=== PATIENT | male | born 1950 | race Caucasian/White ===

== ENCOUNTER 2019-09-22 13:24 | Inpatient (IN) | payer OTHER ==
[~2019-09-22] VITALS: Ht 175.3 cm; Wt 86.2 kg
[2019-09-22 13:30] VITALS: BP 111/59
--- NOTE | 2019-09-22 13:38 | NUR ---
68 YO MALE BIBA FOR GENERALIZED WEAKNESS AND BLE +4 PITTING EDEMA. PT DOES NOT C/O ANY PAIN. PT HAS HX OF HEART ISSUES BUT IS A POOR HISTORIAN. NO RX MEDS.
--- NOTE | 2019-09-22 13:38 | NUR ---
Patient being evaluated by Dr. Isaacs at bedside.
--- NOTE | 2019-09-22 13:40 | NUR ---
PT HAS HEPATITIS C. MADE AWARE.
[2019-09-22 14:16] LABS: BASOPHILS % (AUTO) 1.1 % (0.0-2.0); EOSINOPHILS # (AUTO) 0.2 K/uL (0-0.4); EOSINOPHILS % (AUTO) 4.8 % (0.0-4.0); HEMATOCRIT 23.9 % (36-52); HEMOGLOBIN 7.5 g/dL (12.0-18.0); LYMPHOCYTES # (AUTO) 0.9 K/uL (2.0-11.5); LYMPHOCYTES % (AUTO) 22.2 % (20.5-51.1); MEAN CORPUSCULAR HEMOGLOBIN 24 pg (27-31); MEAN CORPUSCULAR HGB CONC 32 g/dL (33-37); MEAN CORPUSCULAR VOLUME 75.4 fL (80-94); MONOCYTES # (AUTO) 0.5 K/uL (0.8-1.0); MONOCYTES % (AUTO) 12.3 % (1.7-9.3); NEUTROPHILS # (AUTO) 2.4 K/uL (1.8-7.7); NEUTROPHILS % (AUTO) 59.6 % (42.2-75.2); PLATELET COUNT (AUTO) 126 K/uL (140-450); RED BLOOD CELL COUNT(AUTO) 3.17 MIL/uL (4.20-6.10); RED CELL DISTRIBUTION WIDTH 18.5 % (11.6-13.7)
[2019-09-22] MEDS ORDERED: ASPIRIN 325 MG TAB PO ONE (14:50)
--- NOTE | 2019-09-22 14:50 | NUR ---
lab called with critical level: Troponin 6.556
[2019-09-22 14:53] LABS: PROTHROMBIN TIME 11.7 secs (10.8-13.4)
[2019-09-22] MEDS ORDERED: ASPIRIN 81 MG TAB.CHEW PO SCH (15:10)
[2019-09-22 15:34] LABS: ANION GAP 9.9 (8-16); CARBON DIOXIDE 24.8 mmol/L (21-32); CREATININE 0.9 mg/dL (0.6-1.3); POTASSIUM 3.7 mmol/L (3.5-5.1); TOTAL BILIRUBIN 0.9 mg/dL (0.0-1.0)
--- NOTE | 2019-09-22 16:50 | NUR ---
PT IS HOMELESS. CANT RECALL THE YEAR OR PLACE. AWARE OF HIS NAME AND BIRTHDAY
--- NOTE | 2019-09-22 16:51 | NUR ---
MULTIPLE ATTEMPTS FOR IV , UNSUCCESSFUL
--- NOTE | 2019-09-22 16:54 | NUR ---
pt has a hx of chronic edema (2+ to lower extremeties), hepatitis C, cirrhosis, and per dr kiser-possible heart failure
[2019-09-22] MEDS ORDERED: ONDANSETRON 4 MG/2 ML VIAL IM/IVP PRN (16:55)
[2019-09-22] MEDS ORDERED: HYDROcodone/APAP 7.5/325 MG 1 TAB PO PRN (16:55)
[2019-09-22] MEDS ORDERED: ACETAMINOPHEN 325 MG TAB PO PRN (16:55)
[2019-09-22] MEDS ORDERED: MORPHINE SULFATE 2 MG/ML SYR IVP PRN (16:55)
[2019-09-22] MEDS ORDERED: LACTULOSE 20 GM/30 ML UDC PO ONE (16:55)
[2019-09-22] MEDS ORDERED: DOCUSATE SODIUM 100 MG GELCAP PO PRN (16:55)
--- NOTE | 2019-09-22 17:01 | NUR ---
r wrist iv inserted by debbie wolf
[2019-09-22] MEDS ORDERED: FUROSEMIDE 40 MG/4 ML VIAL IVP ONE (17:10)
--- NOTE | 2019-09-22 17:10 | NUR ---
PT CONINUES TO FALL BACK ASLEEP AFTER BEING WOKEN
[2019-09-22 17:24] LABS: MAGNESIUM 1.4 mg/dL (1.8-2.4); PHOSPHORUS 2.9 mg/dL (2.5-4.9); THYROID STIMULATING HORMONE 7.09 uIU/mL (0.34-3.74)
--- NOTE | 2019-09-22 17:25 | NUR ---
LASIX AND LACTULOSE ADMINISTERED
[2019-09-22] MEDS ORDERED: NITROGLYCERIN 0.4 MG TAB SL PRN (17:40)
--- NOTE | 2019-09-22 17:40 | NUR ---
NADR, PAIN 08/24
[2019-09-22] MEDS ORDERED: hePARIN / DEXT 5% PREMIX 250 ML IV SCH (17:50)
[2019-09-22] MEDS ORDERED: HEPARIN PER PHARMACY MC PRN ×2 (17:50→18:50)
[2019-09-22 18:00] VITALS: BP 122/69
--- NOTE | 2019-09-22 18:00 | NUR ---
RECEIVED REPORT FROM ER NURSE, POLLY, FOR CONTINUITY OF CARE, PT IS AAOX2, PT IS STABLE, NO SIGNS OF DISTRESS NOTED, RESPIRATIONS ARE EVEN AND UNLABORED, PT HAS R WRIST 18G SALINE LOCK, PT SKIN IS INTACT, PT IS JAUNDICE, PT HAS BILATERAL LOWER LEGS NON-PITTING EDEMA, PT ON CARDIAC DIET, TOOK MRSA SAMPLE, PT PLACED ON NORMAL SALINE AT 100 ML/H PER MD ORDER. INTRODUCE SELF AND INTRODUCE PT TO ROOM, UPDATED WHITEBOARD, ALL NEEDS MET AT THIS TIME, WILL CONTINUE TO MONITOR
--- NOTE | 2019-09-22 18:00 | NUR ---
Patient will be admitted to care of DR LEE. Admited to TELE. Will go to room 122A. Belongings list completed. Report to KALEB AYALA.
[2019-09-22] MEDS: NACL 0.9% 1,000 ML IV SCH (18:10)
--- NOTE | 2019-09-22 18:10 | NUR ---
Note ayush in ED - 09/22/19 at 1811 by [email or web address] Patient will be admitted to care of DR LEE. Admited to TELE. Will go to room 122A. Belongings list completed. Report to KALEB AYALA.
--- NOTE | 2019-09-22 19:15 | NUR ---
GAVE REPORT TO NIGHT NURSE FOR CONTINUITY OF CARE, PT IS STABLE
--- NOTE | 2019-09-22 19:16 | NUR ---
RECEIVED REPORT FROM DAY SHIFT NURSE. PT IN BED WITH HOB ELEVATED. AOX2. RESPIRATIONS EVEN AND UNLABORED TO RA. IV ACCESS G18 ON R WRIST CLEAN AND INTACT. IVF INFUSING WELL. EDEMA NOTED ON BLE. SKIN IS JAUNDICED. NO SIGNS/SYMPTOMS OF DISTRESS NOTED AT THIS TIME. SAFETY MEASURES IN PLACE. CALL LIGHT WITHIN REACH. WILL CONTINUE TO MONITOR.
[2019-09-22] MEDS ORDERED: SODIUM FERRIC GLUCONATE 12.5 MG/ML AMP IV ONE (19:56)
[2019-09-22] MEDS: SODIUM FERRIC GLUCONATE 125 MG in NACL 0.9% 100 ML IV SCH (19:59)
[2019-09-22 20:00] VITALS: BP 132/75
[2019-09-22] MEDS ORDERED: CRUSHER, PILL MC ONE (20:15)
[2019-09-22] MEDS: METOPROLOL 25 MG TAB PO SCH (20:16)
--- NOTE | 2019-09-22 20:16 | NUR ---
VITAL SIGNS STABLE. SCHEDULED MEDS GIVEN ORDERED. PT STILL DROWSY BUT RESPONDS TO VOICE AND TOUCH. NO S/SX OF DISTRESS AT THIS TIME. CALL LIGHT WITHIN REACH. WILL CONTINUE TO MONITOR.
[2019-09-22] MEDS: hePARIN / DEXT 5% PREMIX 250 ML IV SCH ×2 (21:45→21:58)
--- NOTE | 2019-09-22 21:45 | NUR ---
HEPARIN DRIP STARTED. CO-SIGNED AND ACKNOWLEDGED WITH CHARGE NURSE (LEA). PTT ORDERED AT 0345 PER PROTOCOL. WILL CONTINUE TO MONITOR.
[2019-09-22 21:58] LABS: APPEARANCE,URINE CLEAR (CLEAR); BILIRUBIN,URINE NEGATIVE (NEGATIVE); BLOOD, URINE NEGATIVE (NEGATIVE); LEUKOCYTE ESTERASE ,URINE NEGATIVE (NEGATIVE); NITRITE, URINE NEGATIVE (NEGATIVE); PH,URINE 5.5 (5.0-9.0); UGLUCOSE NEGATIVE (NEGATIVE)
[2019-09-22 22:00] LABS: COLOR,URINE STRAW (YELLOW)
--- NOTE | 2019-09-22 22:17 | NUR ---
CRITICAL LAB VALUE TROPONIN 4.[address] MERRITT INFORMED. NO NEW ORDERS MADE.
[2019-09-22 22:24] LABS: BARBITURATE, URINE NEGATIVE ng/ml (NEG <=200); BENZODIAZEPINE, URINE NEGATIVE ng/mL (NEG <=200); CANNABINOID, URINE NEGATIVE ng/mL (NEG <=50); COCAINE, URINE NEGATIVE ng/mL (NEG <=300); OPIATE, URINE POSITIVE ng/mL (NEG <=2000); PHENCYCLIDINE SCREEN,URINE NEGATIVE ng/mL (NEG <=25)
--- NOTE | 2019-09-22 23:45 | NUR ---
VITAL SIGNS WNL. PT STILL DROWSY. HEPARIN DRIP STILL INFUSING WELL. PT REFUSES IV INSERTION FOR FLUID HYDRATION. WILL CONTINUE TO MONITOR.
[2019-09-23] VITALS: BP 125/71
--- NOTE | 2019-09-23 02:02 | NUR ---
PT ASLEEP. NOT IN DISTRESS. RESPIRATIONS EVEN AND UNLABORED. CALL LIGHT WITHIN REACH. WILL CONTINUE TO MONITOR.
[2019-09-23] MEDS: NACL 0.9% 1,000 ML IV SCH ×2 (02:55→11:49)
[2019-09-23 04:00] VITALS: BP 119/69
--- NOTE | 2019-09-23 04:00 | NUR ---
VITAL SIGNS STABLE. PT STILL DROWSY BUT AROUSABLE BY VOICE AND TOUCH. SAFETY MEASURES IN PLACE. WILL CONTINUE TO MONITOR.
--- NOTE | 2019-09-23 07:15 | NUR ---
ENDORSED TO DAY SHIFT NURSE FOR CONTINUITY OF CARE. PT IN STABLE CONDITION.
--- NOTE | 2019-09-23 07:16 | NUR ---
RECEIVED REPORT FROM GLASS BULB SILVERER NURSE. PATIENT LYING DOWN IN BED SLEEPING, AROUSABLE BY VOICE. NO DISTRESS NOTED. DENIES ANY PAIN. AAOX2, CALM, COOPERATIVE, SKIN COLOR APPROPRIATE TO ETHNICITY, WARM TO TOUCH. SKIN INTACT. HAS BLE PITTING +1 PITTING EDEMA. RESPIRATIONS EVEN, UNLABORED, ON ROOM AIR. IV SITE INTACT, PATENT, AND INFUSING HEPARIN DRIP. NO OTHER IV LINE NOTED PATIENT REFUSED ANOTHER IV LINE PER NIGHT RN. REVIEWED PLAN OF CARE WITH PATIENT. PATIENT VERBALIZED UNDERSTANDING. SAFETY MEASURES IN PLACE, CALL LIGHT WITHIN REACH. WILL CONTINUE TO MONITOR.
[2019-09-23 08:00] VITALS: BP 136/80
[2019-09-23] MEDS: hePARIN / DEXT 5% PREMIX 250 ML IV SCH ×2 (08:53→16:17)
[2019-09-23] MEDS: FERROUS GLUCONATE 324 MG TAB PO SCH (08:55)
[2019-09-23] MEDS: ASPIRIN 81 MG TAB.CHEW PO SCH (08:56)
[2019-09-23] MEDS: ATORVASTATIN 20 MG TAB PO SCH (08:56)
[2019-09-23] MEDS: METOPROLOL 25 MG TAB PO SCH ×2 (08:56→21:57)
[2019-09-23] MEDS: LISINOPRIL 5 MG TAB PO SCH (08:56)
[2019-09-23] MEDS: LACTULOSE 20 GM/30 ML UDC PO SCH ×4 (08:56→17:00)
[2019-09-23] MEDS: FUROSEMIDE 40 MG/4 ML VIAL IVP SCH (08:57)
--- NOTE | 2019-09-23 09:04 | NUR ---
PATIENT LYING DOWN IN BED. NO DISTRESS NOTED. SCHEDULED MEDICATIONS DUE GIVEN. WILL CONTINUE TO MONITOR.
--- NOTE | 2019-09-23 09:50 | NUR ---
YARN WEIGHER AT BEDSIDE. WILL CONTINUE TO MONITOR.
[2019-09-23 12:00] VITALS: BP 126/78
--- NOTE | 2019-09-23 12:52 | NUR ---
PATIENT SITTING IN BED WITH LUNCH TRAY IN FRONT. NO DISTRESS NOTED. CONDITION UNCHANGED. WILL CONTINUE TO MONITOR.
--- NOTE | 2019-09-23 13:44 | NUR ---
PATIENT SITTING DOWN IN BED. CONDITION UNCHANGED. SCHEDULED MEDICATIONS DUE GIVEN. WILL CONTINUE TO MONITOR. Addendum: 09/23/19 at 1355 by Ken Arriaga RN PATIENT REFUSED TO TAKE LACTULOSE AT THIS TIME. LACTULOSE OPENED ALREADY, THUS 1300 SCHEDULED LACTULOSE 20 GM WASTED AT THIS TIME
[2019-09-23 15:05] LABS: EOSINOPHILS % (AUTO) 1.1 % (0.0-4.0); HEMOGLOBIN 9.1 g/dL (12.0-18.0); LYMPHOCYTES # (AUTO) 0.6 K/uL (2.0-11.5); LYMPHOCYTES % (AUTO) 14.5 % (20.5-51.1); MEAN CORPUSCULAR HEMOGLOBIN 23 pg (27-31); MEAN CORPUSCULAR HGB CONC 31 g/dL (33-37); MEAN CORPUSCULAR VOLUME 74.9 fL (80-94); MONOCYTES # (AUTO) 0.5 K/uL (0.8-1.0); MONOCYTES % (AUTO) 10.5 % (1.7-9.3); NEUTROPHILS # (AUTO) 3.1 K/uL (1.8-7.7); NEUTROPHILS % (AUTO) 72.9 % (42.2-75.2); PLATELET COUNT (AUTO) 154 K/uL (140-450); RED BLOOD CELL COUNT(AUTO) 3.88 MIL/uL (4.20-6.10); RED CELL DISTRIBUTION WIDTH 18.6 % (11.6-13.7); WHITE BLOOD COUNT (AUTO) 4.3 K/uL (4.8-10.8)
[2019-09-23 15:26] LABS: ANION GAP 8.5 (8-16); CARBON DIOXIDE 28.1 mmol/L (21-32); CREATININE 0.8 mg/dL (0.6-1.3); POTASSIUM 3.6 mmol/L (3.5-5.1)
--- NOTE | 2019-09-23 15:42 | NUR ---
PATIENT REFUSING TO HAVE CT OF ABD/PELVIS WITH CONTRAST DONE TO R/O HEPATOMA AND REFUSES NEW IV PLACEMENT ON AC FOR CONTRAST ADMINISTRATION. NOTIFIED DR. RODRIGUEZ. DR. RODRIGUEZ TALKED TO PATIENT AT BEDSIDE. PATIENT REFUSES FOR NOW AND WANTS 1 DAY TO THINK ABOUT IT. PER DR. RODRIGUEZ, WILL ASK PATIENT AGAIN TOMORROW.
[2019-09-23 15:58] LABS: MAGNESIUM 1.4 mg/dL (1.8-2.4); PHOSPHORUS 2.4 mg/dL (2.5-4.9)
[2019-09-23 16:00] VITALS: BP 127/76
[2019-09-23 16:00] LABS: CHOL/HDL RATIO 2.7 (1-4.5)
[2019-09-23 16:01] LABS: TOTAL BILIRUBIN 0.8 mg/dL (0.0-1.0)
[2019-09-23 16:02] LABS: ALBUMIN 1.8 g/dL (3.4-5.0); BILIRUBIN,DIRECT 0.3 mg/dL (0.0-0.3)
--- NOTE | 2019-09-23 16:27 | NUR ---
SCHEDULED MEDICATIONS DUE GIVEN. WILL CONTINUE TO MONITOR.
--- NOTE | 2019-09-23 18:30 | NUR ---
PATIENT SITTING DOWN IN BED WITH DINNER TRAY IN FRONT. NO DISTRESS NOTED. CONDITION UNCHANGED. WILL CONTINUE TO MONITOR.
--- NOTE | 2019-09-23 19:18 | NUR ---
GAVE REPORT TO COLLECTION SYSTEMS MODELER NURSE FOR CONTINUITY OF CARE. PATIENT IN STABLE CONDITION.
--- NOTE | 2019-09-23 19:25 | NUR ---
RECEIVED REPORT FROM DAY SHIFT NURSE. PATIENT IS LYING, ASLEEP COMFORTABLY WITH NO SIGNS OF DISTRESS. RESPIRATIONS EVEN AND UNLABORED. SKIN INTACT. AMBULATORY. ON ROOM AIR. IV SITE INTACT, PATENT, AND INFUSING HEPARIN DRIP. REVIEWED PLAN OF CARE WITH PATIENT. PATIENT VERBALIZED UNDERSTANDING. SAFETY MEASURES IN PLACE, CALL LIGHT WITHIN REACH. WILL CONTINUE TO MONITOR.
[2019-09-23 20:00] VITALS: BP 111/60
[2019-09-23] MEDS: SODIUM FERRIC GLUCONATE 125 MG in NACL 0.9% 100 ML IV SCH (20:00)
--- NOTE | 2019-09-23 20:15 | NUR ---
PT REFUSED TO HAVE LOOK FOR ANY VEIN FOR NEW IV ACCESS. DR. ALLEN MADE AWARE. HE SAID HE WILL ORDER PO REPLACEMENT FOR FERRLECIT IV AND MAGNESIUM AND PHOS LEVEL ARE BOTH LOW. WILL ALSO ORDER PO.
[2019-09-23] MEDS ORDERED: SODIUM PHOS / POTASSIUM PHOS 1 PKT PDR PO ONE (21:20)
[2019-09-23] MEDS ORDERED: MAGNESIUM OXIDE 400 MG TAB PO ONE (21:20)
--- NOTE | 2019-09-23 22:02 | NUR ---
SCHEDULED DUE MEDICATIONS GIVEN. WILL CONTINUE TO MONITOR.
--- NOTE | 2019-09-23 22:37 | NUR ---
PATIENT SLEEPING COMFORTABLY. CALL LIGHT WITHIN REACH. WILL CONTINUE TO MONITOR.
--- NOTE | 2019-09-23 23:24 | NUR ---
BACK HAND UNABLE TO DRAW BLOOD FOR PTT. PT REFUSED TO TRY IT AGAIN. CALLED DR. ALLEN,RESIDENT. HE SAID TO CALL PHARMACY WHICH I DID AND PHARMACIST SAID OK TO CONTINUE WITHOUT THE PTT FOR NOW AND CAN DRAW ANOTHER ONE IN AM. DR. ALLEN MADE AWARE ABOUT THIS. DR. ALLEN SAID TO CONTINUE WITH HEPARIN DRIP AND HE WILL ORDER PTT IN AM.
[2019-09-24] VITALS: BP 115/71
--- NOTE | 2019-09-24 02:26 | NUR ---
PATIENT STILL SLEEPING COMFORTABLY. CALL LIGHT WITHIN REACH. WILL CONTINUE TO MONITOR.
[2019-09-24] MEDS: hePARIN / DEXT 5% PREMIX 250 ML IV SCH (03:03)
[2019-09-24 04:00] VITALS: BP 118/62
--- NOTE | 2019-09-24 04:53 | NUR ---
PT ASLEEP. NO SIGNS OF DISTRESS. WILL CONTINUE TO MONITOR.
--- NOTE | 2019-09-24 06:13 | NUR ---
SOLAR PHOTOVOLTAIC CREW LEAD CAME AND TRIED TO DRAW BLOOD FOR PTT AND OTHER AM LABS, UNABLE TO GET BLOOD ON THE FIRST TRY, PATIENT REFUSED TO HAVE IT DONE AGAIN. DR. ALLEN RESIDENT MADE AWARE. NO NEW ORDER MADE. WILL WAIT FOR FURTHER ORDER.
--- NOTE | 2019-09-24 06:39 | NUR ---
FNS consult received on 09/22/19 for no reason given. Consult reason does not meet high risk criteria per hospital policy. Patient will be seen and assessed according to the nutrition care policy. Mari Phillips MS, RDN
[2019-09-24] MEDS: NACL 0.9% 1,000 ML IV SCH (06:41)
--- NOTE | 2019-09-24 06:55 | NUR ---
PATIENT HAS BEEN SCREENED AND CATEGORIZED MODERATE NUTRITION RISK. PATIENT WILL BE SEEN WITHIN 3-5 DAYS OF ADMISSION. 09/26/19-09/28/19 JESIKA BATISTA MS, RDN
--- NOTE | 2019-09-24 07:18 | NUR ---
PATIENT IN STABLE CONDITION. GAVE REPORT TO DAY SHIFT NURSE FOR CONTINUITY OF CARE.
--- NOTE | 2019-09-24 07:19 | NUR ---
RECEIVED REPORT FROM SALES COACH NURSE. PATIENT LYING DOWN IN BED WITH BREAKFAST TRAY IN FRONT. NO DISTRESS NOTED. DENIES ANY PAIN. AAOX2, CALM, COOPERATIVE, SKIN COLOR APPROPRIATE TO ETHNICITY, WARM TO TOUCH. SKIN INTACT. HAS BLE PITTING +1 PITTING EDEMA. RESPIRATIONS EVEN, UNLABORED, ON ROOM AIR. IV SITE LEAKING BLOOD, REMOVED AT THIST TIME. MD'S PRESENT AT BEDSIDE, POSSIBLE PICC LINE PLACEMENT TODAY. PATIENT REFUSED AM LABS PER NIGHT RN REPORTS, MD ALREADY AWARE. PER DR. RODRIGUEZ, D/C HEPARIN DRIP AT THIS TIME DUE TO PATIENT REFUSING PTT BLOOD DRAWS AT NIGHT. REVIEWED PLAN OF CARE WITH PATIENT. PATIENT VERBALIZED UNDERSTANDING. SAFETY MEASURES IN PLACE, CALL LIGHT WITHIN REACH. WILL CONTINUE TO MONITOR.
[2019-09-24 08:00] VITALS: BP 134/78
[2019-09-24] MEDS: ATORVASTATIN 20 MG TAB PO SCH (08:40)
[2019-09-24] MEDS: LISINOPRIL 5 MG TAB PO SCH (08:41)
[2019-09-24] MEDS: ASPIRIN 81 MG TAB.CHEW PO SCH (08:41)
[2019-09-24] MEDS: METOPROLOL 25 MG TAB PO SCH (08:41)
[2019-09-24] MEDS: FERROUS GLUCONATE 324 MG TAB PO SCH (08:41)
[2019-09-24] MEDS: FUROSEMIDE 40 MG/4 ML VIAL IVP SCH ×2 (08:41→08:53)
[2019-09-24] MEDS: LACTULOSE 20 GM/30 ML UDC PO SCH (08:42)
--- NOTE | 2019-09-24 09:00 | NUR ---
PATIENT LYING DOWN IN BED. NO DISTRESS NOTED. SCHEDULED MEDICATIONS DUE GIVEN. PATIENT REFUSED LACTULOSE AT THIS TIME.
[2019-09-24] MEDS ORDERED: MUPI1OIN2 TP (11:40)
[2019-09-24] MEDS ORDERED: SPIR50TA PO (11:40)
[2019-09-24] MEDS ORDERED: LISI-424 PO (11:40)
[2019-09-24] MEDS ORDERED: ASPI81CT95 PO (11:40)
[2019-09-24] MEDS ORDERED: FURO-570 PO (11:40)
[2019-09-24] MEDS ORDERED: [UNRECOGNIZED DRUG - CODE] (11:40)
[2019-09-24] MEDS ORDERED: METO25TA PO (11:40)
[2019-09-24] MEDS ORDERED: ATOR20TA40 PO (11:40)
[2019-09-24] MEDS ORDERED: LACT10SO1 PO (11:41)
--- NOTE | 2019-09-24 11:47 | NUR ---
PATIENT WISHES TO LEAVE AMA HE IS REFUSING ALL TREATMENTS PLANNED BY MD, ANY IV PLACEMENT. DR. RODRIGUEZ NOTIFIED AND EXPLAINED TO PATIENT RISKS AND BENEFITS OF LEAVING AMA. PATIENT STILL WISHES TO LEAVE AMA. HOMELESS RESOURCE PACKET PROVIDED TO PATIENT. PATIENT TO ARRANGE FOR OWN TRANSPORTATION PER PATIENT.
--- NOTE | 2019-09-24 12:59 | NUR ---
IV SITE REMOVED WITH MINIMAL BLOOD AND LUMEN COMPLETELY INTACT. HOMELESS RESOURCES WITH PATIENT. PATIENT AMBULATED TO LOBBY VIA STEADY AMBULATION. PATIENT LEFT AMA AT THIS TIME IN STABLE CONDITION.
== END 2019-09-24 13:00 | disposition left against medical advice (07) | DRG 441 ==
LOC: MED 13:24 → MTU 16:55
PROVIDERS: ADMIT General Practice; ATTEND General Practice
DX: K72.90 Hepatic failure, unspecified without coma (principal); I50.33 Acute on chronic diastolic (congestive) heart failure; I21.A1 Myocardial infarction type 2; E43 Unspecified severe protein-calorie malnutrition; G92 Toxic encephalopathy; C22.0 Liver cell carcinoma; I42.9 Cardiomyopathy, unspecified; K74.60 Unspecified cirrhosis of liver; D50.9 Iron deficiency anemia, unspecified; B19.20 Unspecified viral hepatitis C without hepatic coma; Z59.0 Homelessness; Z85.05 Personal history of malignant neoplasm of liver; Z90.49 Acquired absence of other specified parts of digestive tract; Z88.0 Allergy status to penicillin; Z91.14 Patient's other noncompliance with medication regimen; Z68.28 Body mass index [BMI] 28.0-28.9, adult; Z53.29 Procedure and treatment not carried out because of patient's decision for other reasons; K82.4 Cholesterolosis of gallbladder; G31.9 Degenerative disease of nervous system, unspecified; I73.9 Peripheral vascular disease, unspecified; Z22.322 Carrier or suspected carrier of Methicillin resistant Staphylococcus aureus
CPT/HCPCS: 36415; 70450; 71045; 76705; 80048; 80053; 80076; 80305; 81003; 82105; 82140; 82272; 82607; 82746; 83036; 83540; 83735; 83880; 84100; 84443; 84484; 85025; 85045; 85610; 85730; 87081; 93005; 93925; 93970; 96374; 99291; J1644; J1940; J2916; J7030; Q0092

== ENCOUNTER 2019-11-19 13:32 | Inpatient (IN) | payer OTHER, SELFPAY ==
[~2019-11-19] VITALS: Ht 172.7 cm; Wt 72.6 kg
[~2019-11-19 13:32] MED LIST: ASPI81CT95 PO; ATOR20TA40 PO; FURO-570 PO; LACT10SO1 PO; LISI-424 PO; METO25TA PO; MUPI1OIN2 TP; SPIR50TA PO; [UNRECOGNIZED DRUG - CODE]
--- NOTE | 2019-11-19 13:32 | NUR ---
Patient BIBA BLS, transferred to bed 9. RN evaluating patient at bedside.
--- NOTE | 2019-11-19 13:35 | NUR ---
ERMD AT BEDSIDE
[2019-11-19 13:39] VITALS: BP 112/66
--- NOTE | 2019-11-19 13:45 | NUR ---
PT BIBA BLS FOR BILATERAL LEG PAIN AND ALTERED MENTAL STATUS, FOUND BEHIND MIMI IN THE BOX. PD ON SCENE TRYING TO ARREST BUT EMS CALLED FOR C/O PAIN. SUN JOHNSON ON CHEST AND ABDOMEN, BILA +4 PITTING LOWER LEG EDEMA WITH ERYTHEMA AND SCARRING NOTICED. PT IS A&OX1 WITH GARBLED SPEECH. PT DOES NOT HAVE FEVER, SOB, OR COUGH NOTICED AT THIS TIME; PATIENT STATES PAIN OF 6/10 ON FLACC SCALE AT THIS TIME; VSS; PATIENT POSITIONED FOR COMFORT; HOB ELEVATED; BEDRAILS UP X2; BED DOWN. ER MD MADE AWARE OF PT STATUS. PT IS IN ISO ROOM. Addendum: 11/19/19 at 1810 by MED JAUNDICE ON SCLERA LIZANDRO AND SKIN NOTICED.
--- NOTE | 2019-11-19 13:58 | NUR ---
INFLUENZA, RSV, AND COVID-19 SWAB COLLECTED FROM PT
--- NOTE | 2019-11-19 14:19 | NUR ---
LAB AT BEDSIDE
--- NOTE | 2019-11-19 14:19 | NUR ---
RAD AT BEDSIDE
--- NOTE | 2019-11-19 14:41 | NUR ---
PER DR. HURD'S ORDER, HOLD STRAIGHT CATHETER FOR NOW AND WAIT FOR PT CAN URINATE SPONTANEOUSLY.
[2019-11-19 14:46] LABS: RED BLOOD CELL COUNT(AUTO) 3.13 MIL/uL (4.20-6.10); WHITE BLOOD COUNT (AUTO) 13.5 K/uL (4.8-10.8)
[2019-11-19 14:48] LABS: PROTHROMBIN TIME 14.7 secs (10.8-13.4)
[2019-11-19 14:50] LABS: MEAN CORPUSCULAR HEMOGLOBIN 26 pg (27-31); MEAN CORPUSCULAR HGB CONC 31 g/dL (33-37); MEAN CORPUSCULAR VOLUME 83.1 fL (80-94); PLATELET COUNT (AUTO) 86 K/uL (140-450); RED CELL DISTRIBUTION WIDTH 21.8 % (11.6-13.7)
[2019-11-19] MEDS ORDERED: DILTIAZEM 25 MG/5 ML VIAL IVP ONE (14:55)
[2019-11-19 14:59] LABS: RSV NEGATIVE (NEGATIVE)
[2019-11-19 15:02] LABS: ALBUMIN 1.3 g/dL (3.4-5.0); ANION GAP 13.9 (8-16); CARBON DIOXIDE 21.9 mmol/L (21-32); CREATININE 1.2 mg/dL (0.6-1.3); POTASSIUM 3.8 mmol/L (3.5-5.1); TOTAL BILIRUBIN 2.6 mg/dL (0.0-1.0)
--- NOTE | 2019-11-19 15:02 | NUR ---
PER DR. HURD'S ORDER, 10MG DILTIAZEM IVP GAVE TO PT, HOLD THE REST OF 10MG FOR NOW AND MONITOR PT'S BP CLOSELY. Addendum: 11/19/19 at 1509 by MEDHR BP 93/58MMHG, HR 167 AT THE TIME WHILE DILTIAZEM 10MG IVP GIVEN.
[2019-11-19] MEDS ORDERED: LACTULOSE 20 GM/30 ML UDC PO ONE ×2 (15:15→17:00)
[2019-11-19] MEDS ORDERED: OSELTAMIVIR PHOSPHATE 75 MG CAP PO ONE (15:15)
[2019-11-19] MEDS ORDERED: ASPIRIN 81 MG TAB.CHEW PO ONE (15:15)
[2019-11-19] MEDS ORDERED: NACL 0.9% 1,000 ML IV ONE (15:15)
[2019-11-19 15:31] LABS: BASOPHILS % (MANUAL) 0 % (0-2); EOSINOPHILS % (MANUAL) 0 % (0-4); LYMPHOCYTES % (MANUAL) 3 % (20-46); MONOCYTES % (MANUAL) 1 % (5-12)
[2019-11-19] MEDS ORDERED: DILTIAZEM 125 MG in DEXTROSE 5% 100 ML IV ONE (15:50)
[2019-11-19] MEDS ORDERED: DILTIAZEM 125 MG/25 ML VIAL IV ONE (15:58)
[2019-11-19 16:03] LABS: LACTATE DEHYDROGENASE 387 U/L (85-227)
--- NOTE | 2019-11-19 16:05 | NUR ---
PT'S BP IS 90/54MMHG, HR 153, O2 SAT 95%, DR. HURD NOTIFIED. PER 'S ORDER DILTIAZEM 125MG/125ML DRIP STILL GIVEN TO PT TO LOWER HIS HR.
[2019-11-19] MEDS ORDERED: ALBUTEROL HFA MDI 90 MCG/ACTUATION 8 GM INH PRN (16:50)
[2019-11-19] MEDS ORDERED: NACL 0.9% 1,000 ML IV SCH (16:51)
[2019-11-19] MEDS ORDERED: ZOLPIDEM 5 MG TAB PO PRN (16:55)
[2019-11-19] MEDS ORDERED: ACETAMINOPHEN 325 MG TAB PO PRN (16:55)
[2019-11-19] MEDS ORDERED: LORazepam 2 MG/ML VIAL IM/IVP PRN (16:55)
[2019-11-19] MEDS ORDERED: ONDANSETRON 4 MG/2 ML VIAL IM/IVP PRN (16:55)
[2019-11-19] MEDS ORDERED: MORPHINE SULFATE 2 MG/ML SYR IVP PRN (16:55)
[2019-11-19] MEDS ORDERED: HYDROcodone/APAP 5/325 MG 1 TAB TAB PO PRN (16:55)
[2019-11-19] MEDS ORDERED: DOCUSATE SODIUM 100 MG GELCAP PO PRN (16:55)
--- NOTE | 2019-11-19 17:14 | NUR ---
PT IS CONFUSED BUT CAN BE AROUSED BY CALLING HIS NAME. PT IS NOT ABLE TO ANWER QUESTIONS OR FOLLOW COMMANDS. WILL CONTINUOUSLY MONITOR PT'S VITAL SIGNS.
[2019-11-19 17:50] LABS: MAGNESIUM 1.4 mg/dL (1.8-2.4); PHOSPHORUS 3.3 mg/dL (2.5-4.9)
[2019-11-19 17:51] LABS: THYROID STIMULATING HORMONE 12.69 uIU/mL (0.34-3.74)
--- NOTE | 2019-11-19 18:00 | NUR ---
DR. BARTLETT IS EVALUATING PT AT BEDSIDE.
--- NOTE | 2019-11-19 18:05 | NUR ---
SPOKE TO DR. BARTLETT AND NOTIFIED HIM THAT PT'S HR IS 140-150S AND DILTAZEM IS ON MAX DOSAGE. PER DR. BARTLETT'S ORDER WILL MAINTAIN DILRAZEM DRIP UNTIL HR LOWER TO 120S. Addendum: 11/19/19 at 1854 by MEDHR COMFIRMED WITH DR. BARTLETT THAT HE DOES NOT WANT TO ADD ANY OTHER MEDICATION FOR THE PT AT THIS TIME. WILL CONTINUE TO MONITOR PT'S VITAL SIGNS CLOSELY AND REPORT FINDINGS.
--- NOTE | 2019-11-19 18:40 | NUR ---
PT IS RESTING IN THE BED WITH EYES CLOSED. VSS. WILL CONTINUOUSLY/CLOSELY MONITOR PT'S VITAL SIGNS.
--- NOTE | 2019-11-19 18:59 | NUR ---
Yany peacock in [facility] - 11/19/19 at [address] ROJAS IS EVALUATING AT BEDSIDE.
--- NOTE | 2019-11-19 18:59 | NUR ---
DR. ROJAS IS EVALUATING AT BEDSIDE. DR. RYAN SAID SHE WILL CONTACT CHILD CARE TEAM LEAD.
--- NOTE | 2019-11-19 19:04 | NUR ---
STOP DILTAZEM PER DR. ROJAS'S ORDER.
--- NOTE | 2019-11-19 19:04 | NUR ---
Yany peacock in [facility] - 11/19/19 at 1906 by WALTER LINN SANCHEZ
[2019-11-19] MEDS ORDERED: AMIODARONE 450 MG in DEXTROSE 5% 250 ML IV SCH (19:05)
[2019-11-19] MEDS ORDERED: AMIODARONE 150 MG in DEXTROSE 5% 100 ML IV ONE (19:05)
[2019-11-19] MEDS ORDERED: SODIUM BICARBONATE 4.2% 5 MEQ/10 ML SYR IV ONE (19:10)
[2019-11-19] MEDS ORDERED: ALBUMIN HUMAN 25% 50 ML IV ONE ×2 (19:10→22:00)
--- NOTE | 2019-11-19 19:17 | NUR ---
REPORT RECEIVED FROM KI AYALA. PT A&OX1. RESPONDS TO NAME. PT ON NASAL CANNULA 2LPM. O2 SATURATION 95%. SINUS TACHYCARDIA ON MONITOR. HR 140'S. IV SITE RHAND AND RAC BOTH 20G, INTACT, PATENT. SKIN WARM AND DRY. REDNESS NOTED ON CHEST AND ABDOMEN. PITTING EDEMA 4+ BILAT LOWER LEGS. MULTIPLE WOUNDS NOTED. SEE WOUND ASSESSMENT. BED LOCKED IN LOWEST POSITION. SAFETY PRECAUTIONS IN PLACE. WILL CONTINUE TO MONITOR.
--- NOTE | 2019-11-19 19:17 | NUR ---
Pt report given to LUCY Snow. Transfer of care at this time.
--- NOTE | 2019-11-19 19:17 | NUR ---
RECIEVED REPORT FROM LUCY EMERSON. WILL CONT CARE AT THIS TIME.
[2019-11-19] MEDS ORDERED: LORazepam 2 MG/ML VIAL IVP ONE (19:35)
--- NOTE | 2019-11-19 19:35 | NUR ---
RECEIEVED CALL FROM [facility], JODI , REGARDING NM PULMONARY VQ SCAN. STATED PROCEDURE IS TO RULE OUT PE NOT DVT. SPOKE WITH DR ROJAS, ORDERS TO RESCHEDULE PROCEDURE FOR TOMORROW. CALLED BACK JODI, STATED SHE WILL COME IN TOMORROW TO PERFORM PROCEDURE AROUND 2PM.
[2019-11-19] MEDS ORDERED: LORazepam 2 MG/ML VIAL ONE (19:37)
--- NOTE | 2019-11-19 20:13 | NUR ---
RIGHT FEMORAL CENTRAL LINE INSERTED BY DR ROJAS. DR GONZALEZ AT BEDSIDE. PT TOLERATED WELL.
--- NOTE | 2019-11-19 20:15 | NUR ---
PT PRESENTS WITH SINUS RHYTHM @91 BPM. ORDERS TO HOLD AMIODARONE DRIP. DR ROJAS AT BEDSIDE. WILL CONTINUE TO MONITOR.
[2019-11-19] MEDS ORDERED: LORazepam 2 MG/ML VIAL IVP PRN (20:30)
--- NOTE | 2019-11-19 20:30 | NUR ---
NEAL CATHETER INSERTED. DRAINING CLEAR YELLOW URINE.
--- NOTE | 2019-11-19 21:30 | NUR ---
Note ayush in EDM - 11/19/19 at 2347 by [facility] # 16 FR Cesar catheter with 10 ml utilizing sterile technique. Immediate return of 200 ml dark yellow urine noted. Bedside drainage bag placed below level of bladder. Urine sample collected and sent to lab. Pt tolerated procedure well.
[2019-11-19] MEDS ORDERED: AZITHROMYCIN 500 MG in DEXTROSE 5% 250 ML IV ONE (21:31)
[2019-11-19] MEDS ORDERED: AZITHROMYCIN 500 MG INJ VIAL IV ONE (21:59)
--- NOTE | 2019-11-19 22:35 | NUR ---
REPORT GIVEN TO JN FOR CONTINUITY OF CARE
--- NOTE | 2019-11-19 22:36 | NUR ---
RECEIVED REPORT FROM LUCY VARGHESE. WILL CONT CARE AT THIS TIME.
[2019-11-19 23:15] LABS: APPEARANCE,URINE CLEAR (CLEAR); BLOOD, URINE NEGATIVE (NEGATIVE); COLOR,URINE YELLOW (YELLOW); LEUKOCYTE ESTERASE ,URINE NEGATIVE (NEGATIVE); NITRITE, URINE NEGATIVE (NEGATIVE); UGLUCOSE NEGATIVE (NEGATIVE)
--- NOTE | 2019-11-19 23:20 | NUR ---
got verbal orders from md oswald to cancel sodium bicarb.
--- NOTE | 2019-11-19 23:26 | NUR ---
pt is sleeping comfortably. equal chest rise and fall. no distress noted.
[2019-11-19 23:36] LABS: BILIRUBIN,URINE NEGATIVE (NEGATIVE)
[2019-11-19 23:40] LABS: BARBITURATE, URINE NEGATIVE ng/ml (NEG <=200); BENZODIAZEPINE, URINE NEGATIVE ng/mL (NEG <=200); CANNABINOID, URINE NEGATIVE ng/mL (NEG <=50); COCAINE, URINE NEGATIVE ng/mL (NEG <=300); OPIATE, URINE POSITIVE ng/mL (NEG <=2000); PHENCYCLIDINE SCREEN,URINE NEGATIVE ng/mL (NEG <=25)
[2019-11-20] MEDS ORDERED: cefTRIAXone 1,000 MG VIAL ONE
[2019-11-20] MEDS: LACTULOSE 20 GM/30 ML UDC PO SCH ×3 (00:25→21:36)
--- NOTE | 2019-11-20 00:30 | NUR ---
COVERING PRIMARY RN FOR LUNCH RELIEF. PT REMAINS IN STABLE CONDITION, MILD AGITATION NOTED, ABLE TO BE REDIRECTED. WILL CONTINUE TO ASSESS.
--- NOTE | 2019-11-20 00:50 | NUR ---
CENTRAL LINE DRESSING APPEARS SOILED. REPLACED AND INTACT. PT TOLERATED WELL.
--- NOTE | 2019-11-20 01:01 | NUR ---
REPORT RETURNED TO PRIMARY RN: JN.
--- NOTE | 2019-11-20 02:39 | NUR ---
pt is sleeping comfortably. equal chest rise and fall. no distress noted.
--- NOTE | 2019-11-20 04:00 | NUR ---
pt is sleeping comfortably. equal chest rise and fall. no distress noted. pt is able to be arousable.
--- NOTE | 2019-11-20 05:30 | NUR ---
pt has been down graded to tele per md oswald.
--- NOTE | 2019-11-20 05:53 | NUR ---
pt is sleeping comfortably. equal chest rise and fall. no distress noted. pt is able to be arousable. vss.
--- NOTE | 2019-11-20 06:00 | NUR ---
ASSUMED CARE OF PATIENT.
--- NOTE | 2019-11-20 06:24 | NUR ---
I WAS CALLED TO BEDSIDE PT CONCERNED HE WENT TO RR AND SPO2 DROPPED TO 88% PT STATED HE IS OK AND DENIES ANY SOB AT THIS TIMEPT SPO2 93% UPON MY ARRIVAL
--- NOTE | 2019-11-20 06:52 | NUR ---
AM LABS DRAWN VIA CENTRAL LINE, GOOD BLOOD RETURN. FLUSHED WITH 10CC NORMAL SALINE WITHOUT ANY RESISTANCE.
[2019-11-20 06:54] LABS: BASOPHILS # (AUTO) 0.1 K/uL (0.00-0.22); BASOPHILS % (AUTO) 0.8 % (0.0-2.0); EOSINOPHILS # (AUTO) 0.1 K/uL (0-0.4); EOSINOPHILS % (AUTO) 0.9 % (0.0-4.0); HEMATOCRIT 23.7 % (36-52); HEMOGLOBIN 7.5 g/dL (12.0-18.0); LYMPHOCYTES # (AUTO) 0.6 K/uL (2.0-11.5); LYMPHOCYTES % (AUTO) 7.3 % (20.5-51.1); MEAN CORPUSCULAR HEMOGLOBIN 26 pg (27-31); MEAN CORPUSCULAR HGB CONC 32 g/dL (33-37); MEAN CORPUSCULAR VOLUME 82.3 fL (80-94); MONOCYTES # (AUTO) 0.3 K/uL (0.8-1.0); NEUTROPHILS # (AUTO) 6.8 K/uL (1.8-7.7); PLATELET COUNT (AUTO) 54 K/uL (140-450); RED BLOOD CELL COUNT(AUTO) 2.88 MIL/uL (4.20-6.10); RED CELL DISTRIBUTION WIDTH 21.7 % (11.6-13.7); WHITE BLOOD COUNT (AUTO) 7.8 K/uL (4.8-10.8)
--- NOTE | 2019-11-20 07:14 | NUR ---
REPORT TO LUCY MANZANO. ALL CARE TRANSFERRED.
--- NOTE | 2019-11-20 07:16 | NUR ---
RECEIVED REPORT FROM LUCY HAQ. TRANSFER OF CARE AT THIS TIME
[2019-11-20 07:21] LABS: ALBUMIN 1.3 g/dL (3.4-5.0); CARBON DIOXIDE 21.2 mmol/L (21-32); CHOL/HDL RATIO 8.5 (1-4.5); CREATININE 1.2 mg/dL (0.6-1.3); POTASSIUM 3.2 mmol/L (3.5-5.1); TOTAL BILIRUBIN 2.6 mg/dL (0.0-1.0)
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
--- NOTE | 2019-11-20 08:22 | NUR ---
Patient will be admitted to care of DR LEE. Admited to TELE. Will go to room 123B. Belongings list completed. Report to LUCY CHEN.
[2019-11-20 08:30] VITALS: BP 106/61
[2019-11-20] MEDS ORDERED: OSELTAMIVIR PHOSPHATE 75 MG CAP PO SCH (09:00)
[2019-11-20] MEDS ORDERED: ENOXAPARIN 40 MG/0.4 ML SYR SUBQ SCH (09:00)
[2019-11-20] MEDS: ZINC SULF 220 MG CAP PO SCH (09:00)
[2019-11-20] MEDS: AZITHROMYCIN 250 MG TAB PO SCH (10:52)
[2019-11-20] MEDS: FUROSEMIDE 20 MG/2 ML VIAL IVP SCH (10:52)
[2019-11-20] MEDS: ASCORBIC ACID 500 MG TAB PO SCH (10:53)
[2019-11-20] MEDS: LEVOTHYROXINE 0.025 MG TAB PO SCH (10:55)
--- NOTE | 2019-11-20 11:04 | NUR ---
PATIENT LYING DOWN IN BED, SLEEPING, AROUSABLE BY TOUCH AND VOICE. NO DISTRESS NOTED. SCHEDULED MEDICATIONS DUE GIVEN. WILL CONTINUE TO MONITOR.
--- NOTE | 2019-11-20 13:30 | NUR ---
PATIENT LYING DOWN IN BED, AROUSABLE BY TOUCH AND VOICE. LETHARGIC. WILL CONTINUE TO MONITOR.
--- NOTE | 2019-11-20 14:15 | NUR ---
ASSISTED PHOTOENGRAVING ETCHER IN CLEANING AND REPOSITIONING PATIENT. WILL CONTINUE TO MONITOR.
--- NOTE | 2019-11-20 14:40 | NUR ---
ELEVATOR SERVICE TECHNICIAN NOTE: LAURA CONTACTED DOCK COORDINATOR TO BE TRANSFERRED TO PATIENT'S ROOM PHONE. PATIENT DID NOT ANSWER. SW WILL FOLLOW UP. Addendum: 11/20/19 at 1516 by Gordy Gregory SS SW CONSULTED WITH PHYSICIAN. PATIENT IS UNRESPONSIVE AND FALLS BACK ASLEEP WHEN SPOKEN TO. PATIENT WILL NOT RESPOND TO VERBAL STIMULI.
[2019-11-20 16:00] VITALS: BP 109/60
--- NOTE | 2019-11-20 17:10 | NUR ---
PATIENT HAS BEEN SCREENED AND CATEGORIZED MODERATE NUTRITION RISK. PATIENT WILL BE SEEN WITHIN 3-5 DAYS OF ADMISSION. 11/22/19 11/24/[address]
[2019-11-20] MEDS ORDERED: POTASSIUM CHLORIDE 40 MEQ, LIDOCAINE MPF 1% 25 MG in NACL 0.9% 250 ML IV SCH (17:30)
--- NOTE | 2019-11-20 17:30 | NUR ---
ASSISTED MEDICAL SUPERINTENDENT IN REPOSITIONING PATIENT. WILL CONTINUE TO MONITOR.
--- NOTE | 2019-11-20 19:28 | NUR ---
GAVE REPORT TO PRINT DESIGNER NURSE FOR CONTINUITY OF CARE. PATIENT IN STABLE CONDITION.
--- NOTE | 2019-11-20 19:30 | NUR ---
RECEIVED PT FROM WALDEMAR RN PT IS AAOX4 ON TELE SR AT RA BLE EDEMA AND BLISTERS ONCHES CENTRAL LINE ON RT FEMORAL AND IV O HL ON RT SHOULDER, REPOSITIONE D INITIAL ASSESSMETN DONE
[2019-11-20 20:00] VITALS: BP 102/65
[2019-11-20] MEDS: OSELTAMIVIR PHOSPHATE 75 MG CAP PO SCH (21:37)
--- NOTE | 2019-11-20 22:30 | NUR ---
PT IS TAKEN TO CR CHEST TO R/O PE AND COVID TEST IS NEGATIVE
--- NOTE | 2019-11-20 23:00 | NUR ---
PT CAME BACK FRO CT CHEST NOT DISTRESS NOTED
[2019-11-21] VITALS: BP 114/67
--- NOTE | 2019-11-21 02:00 | NUR ---
PT REPOSISTIONED ON TELE SR NOT DISTRESS NOTED
[2019-11-21 04:00] VITALS: BP 110/74
--- NOTE | 2019-11-21 04:00 | NUR ---
SPONGE BTH GIVEN JCN CHANGED PT COOPERATIVE GETTING SLEEP ON TELE SR
[2019-11-21] MEDS: LEVOTHYROXINE 0.025 MG TAB PO SCH (06:23)
[2019-11-21 06:45] LABS: BASOPHILS % (AUTO) 0.1 % (0.0-2.0); EOSINOPHILS # (AUTO) 0.1 K/uL (0-0.4); EOSINOPHILS % (AUTO) 0.7 % (0.0-4.0); HEMATOCRIT 28.2 % (36-52); HEMOGLOBIN 8.8 g/dL (12.0-18.0); LYMPHOCYTES # (AUTO) 0.6 K/uL (2.0-11.5); LYMPHOCYTES % (AUTO) 6.6 % (20.5-51.1); MEAN CORPUSCULAR HEMOGLOBIN 26 pg (27-31); MEAN CORPUSCULAR HGB CONC 31 g/dL (33-37); MEAN CORPUSCULAR VOLUME 83.4 fL (80-94); MONOCYTES # (AUTO) 0.4 K/uL (0.8-1.0); MONOCYTES % (AUTO) 4.3 % (1.7-9.3); NEUTROPHILS # (AUTO) 7.9 K/uL (1.8-7.7); NEUTROPHILS % (AUTO) 88.3 % (42.2-75.2); PLATELET COUNT (AUTO) 73 K/uL (140-450); RED BLOOD CELL COUNT(AUTO) 3.39 MIL/uL (4.20-6.10); RED CELL DISTRIBUTION WIDTH 21.7 % (11.6-13.7); WHITE BLOOD COUNT (AUTO) 8.9 K/uL (4.8-10.8)
[2019-11-21 06:52] LABS: ALBUMIN 1.3 g/dL (3.4-5.0); ANION GAP 11.7 (8-16); CARBON DIOXIDE 24.5 mmol/L (21-32); CREATININE 1.1 mg/dL (0.6-1.3); POTASSIUM 3.2 mmol/L (3.5-5.1); TOTAL BILIRUBIN 2.9 mg/dL (0.0-1.0)
--- NOTE | 2019-11-21 07:02 | NUR ---
PT WILLBE ENDORSED TO DAY SHIFT FOR CONTINUE OF CARE
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
[2019-11-21 08:00] VITALS: BP 117/71
[2019-11-21 08:10] LABS: FERRITIN 155 ng/mL (30-400)
[2019-11-21] MEDS: LACTULOSE 20 GM/30 ML UDC PO SCH ×4 (09:00→22:09)
[2019-11-21] MEDS ORDERED: POTASSIUM CHLORIDE 10 MEQ TABER PO SCH (09:00)
[2019-11-21] MEDS: AZITHROMYCIN 250 MG TAB PO SCH (09:43)
[2019-11-21] MEDS: ASCORBIC ACID 500 MG TAB PO SCH (09:44)
[2019-11-21] MEDS: OSELTAMIVIR PHOSPHATE 75 MG CAP PO SCH ×2 (09:44→22:09)
[2019-11-21] MEDS: ZINC SULF 220 MG CAP PO SCH (09:45)
[2019-11-21] MEDS: FUROSEMIDE 20 MG/2 ML VIAL IVP SCH (09:45)
--- NOTE | 2019-11-21 09:53 | NUR ---
ADMINISTERED SCHEDULED MEDICATION, MEDICATION EDUCATION GIVEN, PT VERBALIZED UNDERSTANDING, PT TOLERATED WELL, PT IS STABLE, CALL LIGHT WITHIN REACH.
[2019-11-21] MEDS ORDERED: POTASSIUM CHLORIDE 10 MEQ TABER PO ONE (10:40)
--- NOTE | 2019-11-21 11:10 | NUR ---
PT ASLEEP IN BED, PT IS STABLE, NO SIGNS OF DISTRESS NOTED, RESPIRATIONS ARE EVEN AND UNLABORED ON ROOM AIR, CALL LIGHT WITHIN
[2019-11-21 12:00] VITALS: BP 103/63
--- NOTE | 2019-11-21 13:05 | NUR ---
PT IS ASLEEP, PT IS STABLE, NO SIGNS OF DISTRESS NOTED, CALL LIGHT WITHIN REACH.
[2019-11-21 14:23] LABS: TRANSFERRIN 153 mg/dL (200 - 370)
--- NOTE | 2019-11-21 15:00 | NUR ---
PT IN JUNCTIONAL RHYTHM, DR BARTLETT IS AWARE.
[2019-11-21 16:00] VITALS: BP 113/67
--- NOTE | 2019-11-21 16:33 | NUR ---
DC PLANN[age] YRS OLD MALE PATIENT WAS ADMITTED FROM [facility] WITH A DX OF INFLUENZA A PNA, HEPATIC ENCEPHALOPATHY ,CHF AND PSVT. PT HAS A HX OF CHF HEPC CIRRHOSIS , ETOH, AND IV DRUG ABUSE. EKG SHOWS SIINUS TACHYCARDIA CXR SHOWED MODERATE CARDIOMEGALY AND PULMONARY EDEMA . COVID TIN AND BLOOD CULTURE PENDING. STARTED IV ABX ROCEPHIN AND AZITHROMYCIN ,TAMIFLU . CONSULTED WITH PULMO AND CARDIO. DC PLAN TO GO HOME WHEN STABLE CM TO FOLLOW Addendum: 11/22/19 at 1531 by Rashmi Fernandez CM FAXED PATIENTS PACKET TO [facility]. WILL FOLLOW UP Addendum: 11/22/19 at 1535 by Rashmi Fernandez CM FOLLOWED UP WITH LYNETTE AT [facility] SHE IS REVIEWING THE PACKET AND WILL CONTACT ME BACK Addendum: 11/22/19 at 1618 by Rashmi Fernandez CM RECEIVED A CALL BACK FROM LYNETTE FROM [facility]. SHE STATED THAT [facility] IS WILLING TO ACCEPT THE PATIENT ROOM # 21A. Addendum: 11/22/19 at 1653 by Rashmi Fernandez CM THE RN TRIED SPEAKING TO THE PATIENT TO SEE IF HE WAS AGREEABLE TO GOING TO A SNF BUT SHE STATED THE PATIENT TOLD HER "TO LEAVE ME ALONE." AND WENT BACK TO SLEEP. Addendum: 11/23/19 at 0901 by Rashmi Fernandez CM RECEIVED DISCHARGE ORDER. CALLED LUCY FLANAGAN TO SEE IF PATIENT WAS AWAKE AND ORIENTED TO DISCUSS DISCHARGE TO [facility], SHE SAID SHE WOULD CALL ME BACK. Addendum: 11/23/19 at 1110 by Rashmi Fernandez CM PATIENT WILL BE DISCHARGED TO [facility] TODAY. DR. LEE SPOKE TO THE PATIENT AND STATED HE IS AGREEABLE. LYNETTE FROM [facility] WILL SET UP TRANSPORTATION. Addendum: 11/23/19 at 1113 by Rashmi Fernandez CM GAVE RN PANCHITO DOUGLAS IMPORTANT MESSAGE FROM [employer] FOR PATIENT TO SIGN. Addendum: 11/23/19 at 1153 by Rashmi Fernandez CM [facility]IENT WITH [facility] FOR 6:00 PM GOING TO [facility] Addendum: 11/23/19 at 1234 by Rashmi Fernandez CM NOTIFIED STEPHON OF [facility]IEF [employer]RAF[employer]
[2019-11-21] MEDS ORDERED: VANCOMYCIN PER PHARMACY MC PRN (16:50)
[2019-11-21] MEDS: VANCOMYCIN 750 MG in DEXTROSE 5% 250 ML IV SCH (18:02)
--- NOTE | 2019-11-21 18:05 | NUR ---
ADMINISTERED SCHEDULED MEDICATION, MEDICATION EDUCATION GIVEN, PT ASLEEP AND WOKE PT UP TO EXPLAIN MEDICATION, PT IGNORED NURSE, PT TOLERATING MEDICATION OKAY, PT IS STABLE, CALL LIGHT WITHIN REACH.
--- NOTE | 2019-11-21 19:25 | NUR ---
ENDORSE PT TO NIGHT NURSE FOR CONTINUITY OF CARE, PT STABLE
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
[2019-11-21 20:00] VITALS: BP 117/73
--- NOTE | 2019-11-21 22:01 | NUR ---
RECEIVED REPORT FROM AM SHIFT. PT SEEN AND ASSESSED. FOUND PT ON 1L NASAL CANNULA WITH SPO2 98%. PT IN NO APPARENT RESPIRATORY DISTRESS AT THIS TIME. WILL CONTINUE TO MONITOR.
--- NOTE | 2019-11-21 22:09 | NUR ---
PT SAID THAT HE DOES NOT WANT HIS LACTULOSE/ REFRUSED, EXPLAINED TO HIM THE RISKS AND BENEFITS, WILL INFORM DR. ALLEN
--- NOTE | 2019-11-21 23:05 | NUR ---
PT AGAIN TRIED TO GIVE HIM THE LACTULOSE, PT SAID THAT " GET OUT OF HERE" WITH EMILY SOSA WITNESS.
[2019-11-22] VITALS: BP 118/74
--- NOTE | 2019-11-22 02:20 | NUR ---
OFFERED CHG BATH FOR CENTRAL LINE PROTOCOL, PT REFUSED HE SAID TO LEAVE ME ALONE.
[2019-11-22 04:00] VITALS: BP 118/75
[2019-11-22] MEDS: VANCOMYCIN 750 MG in DEXTROSE 5% 250 ML IV SCH ×2 (05:02→17:00)
[2019-11-22] MEDS: LEVOTHYROXINE 0.025 MG TAB PO SCH (06:18)
--- NOTE | 2019-11-22 06:18 | NUR ---
PATIENT'S SYNTHROID MANUAL BAR CODE DONE; PT,S ISOLATION FOR INFLUENZA A, DROPLET
[2019-11-22 06:38] LABS: BASOPHILS % (AUTO) 0.5 % (0.0-2.0); EOSINOPHILS # (AUTO) 0.1 K/uL (0-0.4); EOSINOPHILS % (AUTO) 1.3 % (0.0-4.0); HEMATOCRIT 27.1 % (36-52); HEMOGLOBIN 8.5 g/dL (12.0-18.0); LYMPHOCYTES # (AUTO) 0.7 K/uL (2.0-11.5); LYMPHOCYTES % (AUTO) 8.3 % (20.5-51.1); MEAN CORPUSCULAR HEMOGLOBIN 26 pg (27-31); MEAN CORPUSCULAR HGB CONC 31 g/dL (33-37); MEAN CORPUSCULAR VOLUME 82.6 fL (80-94); MONOCYTES # (AUTO) 0.5 K/uL (0.8-1.0); MONOCYTES % (AUTO) 5.8 % (1.7-9.3); NEUTROPHILS # (AUTO) 6.9 K/uL (1.8-7.7); NEUTROPHILS % (AUTO) 84.1 % (42.2-75.2); PLATELET COUNT (AUTO) 86 K/uL (140-450); RED BLOOD CELL COUNT(AUTO) 3.28 MIL/uL (4.20-6.10); RED CELL DISTRIBUTION WIDTH 21.7 % (11.6-13.7); WHITE BLOOD COUNT (AUTO) 8.2 K/uL (4.8-10.8)
[2019-11-22 06:55] LABS: ANION GAP 12.8 (8-16); CARBON DIOXIDE 23.8 mmol/L (21-32); CREATININE 0.8 mg/dL (0.6-1.3); POTASSIUM 3.6 mmol/L (3.5-5.1)
--- NOTE | 2019-11-22 07:00 | NUR ---
RECEIVED REPORT ON PATIENT CONDITION AND PLAN OF CARE FROM ETL LEAD NURSE. PATIENT IS RESTING COMFORTABLY IN BED, ON O2 AT 2L VIA NC. IN NO S/S RESPIRATORY DISTRESS NO APPEARANCE OF PAIN AT THIS TIME. ALL NEEDS MET, CALL LIGHT WITHIN REACH, WILL CONTINUE TO MONITOR.
[2019-11-22 08:00] VITALS: BP 138/82
[2019-11-22] MEDS: OSELTAMIVIR PHOSPHATE 75 MG CAP PO SCH ×2 (09:03→20:46)
[2019-11-22] MEDS: LACTULOSE 20 GM/30 ML UDC PO SCH ×2 (09:03→20:47)
--- NOTE | 2019-11-22 09:03 | NUR ---
PT IS ALERT AND ORIENTED X 3, DISORIENTED TO PURPOSE . EXPLAINED TO PATIENT THAT HE HAS INFLUENZA, PATIENT VERBALIZED UNDERSTANDING. MEDICATIONS EXPLAINED AND GIVEN TO PATIENT. PT BLOOD PRESSURE CHECKED MANUALLY TO BE 138/82. PATIENT HAS R FEMORAL PICCLINE RUNNING NS AT TKO RATE. PATIENT NOTED WITH EDEMA AND CELLULITIS AND CLOSED BLISTERS IN BILATERAL LOWER EXTREMITIES. PATIENT DOES NOT COMPLAIN OF ANY PAIN AT THIS TIME, IN NO S/S RESPIRATORY DISTRESS. ON O2 NC, SATURATION 98% PATIENT SET UP FOR BREAKFAST AND IS EATING INDEPENDENTLY. ALL NEEDS MET, CALL LIGHT WITHIN REACH, WILL CONTINUE TO MONITOR. DROPLET PRECAUTIONS FOLLOWED. Addendum: 11/22/19 at 1114 by Danica Underwood RN PT REFUSED LACTULOSE SOLUTION MEDICATION STATING THAT HIS BOWEL MANAGEMENT IS "FINE".
[2019-11-22] MEDS: FUROSEMIDE 20 MG/2 ML VIAL IVP SCH (09:04)
[2019-11-22] MEDS: ZINC SULF 220 MG CAP PO SCH (09:04)
[2019-11-22] MEDS: ASCORBIC ACID 500 MG TAB PO SCH (09:05)
--- NOTE | 2019-11-22 10:25 | NUR ---
CRITICAL LAB: Staphylococcus aureus-MRSA isolated. INFORMED RESIDENT DOCTOR Addendum: 11/22/19 at 1037 by Princess Justine Morales RN DR. ROSA FONTANEZ
--- NOTE | 2019-11-22 10:45 | NUR ---
ROUNDED ON PATIENT, PATIENT IS ASLEEP IN BED, IN NO S/S RESPIRATORY DISTRESS, NO APPEARANCE OF PAIN AT THIS TIME. ATE 100% OF BREAKFAST. ALL NEEDS MET, CALL LIGHT WITHIN REACH, WILL CONTINUE TO MONITOR, DROPLET PRECAUTIONS FOLLOWED.
[2019-11-22 12:00] VITALS: BP 109/75
[2019-11-22 12:29] LABS: RAPID PLASMA REAGIN NON-REACTIVE (Non Reactiv)
--- NOTE | 2019-11-22 12:34 | NUR ---
CLEANED AND REPOSITIONED PATIENT. WOUND PICTURES TAKEN. CLEANSED WITH NS PAT DRIED AND DRESSINGS APPLIED. ONE LARGE BM THAT IS LIQUID. LUNCH TRAY AT BEDSIDE TABLE. NO SIGNS OF DISTRESS NOTED. BED IN LOW POSITION. CALL LIGHT IS WITHIN REACH. WILL CONTINUE TO MONITOR.
--- NOTE | 2019-11-22 14:00 | NUR ---
COVID-19 NASOPHARYNGEAL SWAB COLLECTED. PATIENT TOLERATED FAIRLY. SENT SPECIMEN TO THE LAB
--- NOTE | 2019-11-22 14:17 | NUR ---
DR SOSA MADE AWARE OF PATIENT'S MULTIPLE OPEN WOUNDS ON LOWER EXTREMITIES AND RIGHT HIP. MD PUT IN ORDER FOR WOUND CARE CONSULT.
--- NOTE | 2019-11-22 15:15 | NUR ---
ROUNDED ON PATIENT, PATIENT PLACED ON BED BAKER, HAD SECOND INSTANCE OF SOFT, BROWN, MEDIUM AMOUNT OF STOOL TODAY. CLEANED, CHANGED, AND REPOSITIONED. NO C/O OF PAIN, ON O2 2L VIA NC. ALL NEEDS MET, CALL LIGHT WITHIN REACH, WILL CONTINUE TO MONITOR. DROPLET PRECAUTIONS FOLLOWED.
[2019-11-22 16:00] VITALS: BP 112/76
--- NOTE | 2019-11-22 16:28 | NUR ---
CLEANED, CHANGED, AND REPOSITIONED PATIENT WITH ASSISTANCE OF EMILY AND ANOTHER RN. PATIENT NOW LYING RIGHT SIDE. PATIENT IS 100% O2 SATURATION, ON VENTILATOR. PATIENT RECTAL TUBE PATENT. URINE IN NEAL CATHETER NOTED WITH A LOT OF SEDIMENT, 100 ML OUTPUT. ALL NEEDS MET, CALL LIGHT WITHIN REACH. CONTACT PRECAUTIONS FOLLOWED. WILL CONTINUE TO MONITOR.
--- NOTE | 2019-11-22 16:45 | NUR ---
VS CHECKED. PATIENT DENIES PAIN. WENT BACK TO SLEEP AFTER. ON 2L O2 VIA NC. O2SAT 96%. NO SIGNS OF DISTRESS NOTED. BED IN LOW POSITION. CALL LIGHT IS WITHIN REACH. WILL CONTINUE TO MONITOR.
--- NOTE | 2019-11-22 17:14 | NUR ---
PATIENT REFUSING BLOOD DRAW TWICE. EXPLAINED WHY IT IS NEEDED. PATIENT STATED TO DRAW IT LATER. WILL INFORM PHARMACY AND RESIDENT DOCTOR.
--- NOTE | 2019-11-22 17:30 | NUR ---
WAS ABLE TO DRAW BLOOD FOR VANCO TROUGH FROM FEMORAL PICC LINE. SENT TO LAB. WILL WAIT FOR THE RESULT SO I CAN HANG JOSE VANCO 750 MG. PATIENT C/O OF ACID REFLUX. WILL NOTIFY RESIDENT DOCTOR
--- NOTE | 2019-11-22 18:01 | NUR ---
PHARMACIST MADE AROUND VANCO TROUGH IS 4.4. HE STATED HE WILL CHANGE THE DOSAGE TO 1250MG. WILL WAIT FOR THE MEDICATION TO BE DELIVERED
[2019-11-22] MEDS ORDERED: VANCOMYCIN HCL 1.25 GM in NACL 0.9% 250 ML IV SCH (18:10)
--- NOTE | 2019-11-22 18:25 | NUR ---
PICKED UP VANCO DOSAGE FROM PHARMACY TO BE HANG.
--- NOTE | 2019-11-22 18:26 | NUR ---
HUNG PATIENT NEW ORDER OF VANCOMYCIN 1.25 MG PT VANCO TROUGH WAS 4.4 . CURRENTLY INFUSING AT A RATE OF 167 ML/HR THROUGH FEMORAL CATHETER. ALL NEEDS MET, CALL LIGHT WITHIN REACH, WILL CONTINUE TO MONITOR PATIENT. DROPLET PRECAUTIONS FOLLOWED.
--- NOTE | 2019-11-22 19:25 | NUR ---
ENDORSED PATIENT FROM LAYOUT WORKER NURSE FOR CONTINUITY OF CARE. PATIENT IS IN STABLE IN CONDITION.
[2019-11-22 20:00] VITALS: BP 141/72
--- NOTE | 2019-11-22 20:00 | NUR ---
RECEIVED REPORT OF PT IN STABLE CONDITION.TELE IS ON AND SHOWING SR.CALL LIGHT IN REACH.IVF AT TKO INFUSING WELL VIA CVP LINE IN RT FEMORAL .F/C PATENT AND DRAINING LIGHT CB COLOR URINE. WILL CONTINUE MONITORING.
[2019-11-23] VITALS: BP 116/70
--- NOTE | 2019-11-23 | NUR ---
PT SLEEPING W/O S/S OF ANY DISTRESS.
[2019-11-23 04:00] VITALS: BP 124/65
--- NOTE | 2019-11-23 04:00 | NUR ---
SLEEPING.NO DISTRESS AT THIS TIME.
[2019-11-23] MEDS ORDERED: VANCOMYCIN 1,000 MG in NACL 0.9% 250 ML IV SCH (06:00)
--- NOTE | 2019-11-23 06:07 | NUR ---
ALL SCHEDULED MEDS GIVEN. NO RESP.DISTRESS.HAS GEN.WEAKNESS.
[2019-11-23 06:25] LABS: BASOPHILS # (AUTO) 0.1 K/uL (0.00-0.22); BASOPHILS % (AUTO) 0.5 % (0.0-2.0); EOSINOPHILS # (AUTO) 0.1 K/uL (0-0.4); EOSINOPHILS % (AUTO) 0.9 % (0.0-4.0); HEMATOCRIT 32.5 % (36-52); HEMOGLOBIN 10.1 g/dL (12.0-18.0); MEAN CORPUSCULAR HEMOGLOBIN 26 pg (27-31); MEAN CORPUSCULAR HGB CONC 31 g/dL (33-37); MEAN CORPUSCULAR VOLUME 82.5 fL (80-94); MONOCYTES # (AUTO) 0.5 K/uL (0.8-1.0); MONOCYTES % (AUTO) 5.4 % (1.7-9.3); NEUTROPHILS # (AUTO) 8.3 K/uL (1.8-7.7); NEUTROPHILS % (AUTO) 83.2 % (42.2-75.2); PLATELET COUNT (AUTO) 113 K/uL (140-450); RED BLOOD CELL COUNT(AUTO) 3.94 MIL/uL (4.20-6.10); RED CELL DISTRIBUTION WIDTH 21.6 % (11.6-13.7); WHITE BLOOD COUNT (AUTO) 9.9 K/uL (4.8-10.8)
[2019-11-23] MEDS: LEVOTHYROXINE 0.025 MG TAB PO SCH (07:05)
[2019-11-23 07:18] LABS: ANION GAP 12.2 (8-16); CARBON DIOXIDE 24.2 mmol/L (21-32); CREATININE 0.9 mg/dL (0.6-1.3); POTASSIUM 3.4 mmol/L (3.5-5.1)
--- NOTE | 2019-11-23 07:52 | NUR ---
RECEIVED REPORT FROM PM RNARELY. PT IS ALOC WITH A DX OF INFLUENZA A AND MRSA. PT HAS AN IV IN THE RT SHOULDER 24G. 1ST COVID 19 TEST NEGATIVE. WILL CONTINUE PLAN OF CARE.
[2019-11-23 08:00] VITALS: BP 123/82
[2019-11-23] MEDS ORDERED: FUROSEMIDE 20 MG/2 ML VIAL IVP SCH (09:00)
[2019-11-23] MEDS: ASCORBIC ACID 500 MG TAB PO SCH (09:46)
[2019-11-23] MEDS: OSELTAMIVIR PHOSPHATE 75 MG CAP PO SCH (09:46)
[2019-11-23] MEDS: ZINC SULF 220 MG CAP PO SCH (09:46)
[2019-11-23] MEDS: LACTULOSE 20 GM/30 ML UDC PO SCH (09:47)
--- NOTE | 2019-11-23 13:00 | NUR ---
DC NEAL CATH. PT TOLERATED PROCEDURE WELL.
[2019-11-23 14:09] VITALS: BP 131/79
--- NOTE | 2019-11-23 14:37 | NUR ---
DR FISCHER CHECKING THE RESULT OF BLOOD CULTURE, WILL ASK DR. LEE
--- NOTE | 2019-11-23 16:48 | NUR ---
UPDATE FROM LAB, PT IS POSITIVE FOR MRSA FROM BLOOD CULTURE.
[2019-11-23 17:12] VITALS: BP 125/81
--- NOTE | 2019-11-23 19:00 | NUR ---
PT WAS DC TO [facility]. GAVE REPORT TO FACILITY RN.
[2019-11-23] MEDS ORDERED: CEFT1SOL1 IV (20:29)
[2019-11-23] MEDS ORDERED: VANC1FRO IV (20:30)
[2019-11-23] MEDS ORDERED: TAM75 PO (20:30)
--- NOTE | 2019-11-24 08:26 | NUR ---
WOUND CONSULT NOT DONE, PT. DISCHARGED.
== END 2019-11-23 19:00 | DRG 871 ==
LOC: MED 13:32 → MMU 15:56 → EEVIPCON 15:56 → MTU 11-20 06:38
PROVIDERS: ADMIT General Practice; ATTEND General Practice
PROC: 06HY33Z Insertion of Infusion Device into Lower Vein, Percutaneous Approach (ICD-10-PCS; principal; 2019-11-19)
PROC: B54BZZA Ultrasonography of Right Lower Extremity Veins, Guidance (ICD-10-PCS; 2019-11-19)
DX: A41.89 Other specified sepsis (principal); J96.01 Acute respiratory failure with hypoxia; J10.00 Influenza due to other identified influenza virus with unspecified type of pneumonia; I50.43 Acute on chronic combined systolic (congestive) and diastolic (congestive) heart failure; L03.116 Cellulitis of left lower limb; L03.115 Cellulitis of right lower limb; I47.1 Supraventricular tachycardia; I42.9 Cardiomyopathy, unspecified; E87.1 Hypo-osmolality and hyponatremia; E87.2 Acidosis; R18.8 Other ascites; A41.01 Sepsis due to Methicillin susceptible Staphylococcus aureus; R65.20 Severe sepsis without septic shock; K72.90 Hepatic failure, unspecified without coma; B19.20 Unspecified viral hepatitis C without hepatic coma; K74.60 Unspecified cirrhosis of liver; I71.9 Aortic aneurysm of unspecified site, without rupture; I11.0 Hypertensive heart disease with heart failure; F15.10 Other stimulant abuse, uncomplicated; F10.20 Alcohol dependence, uncomplicated; E87.6 Hypokalemia; D69.59 Other secondary thrombocytopenia; D64.9 Anemia, unspecified; R16.0 Hepatomegaly, not elsewhere classified; Z90.49 Acquired absence of other specified parts of digestive tract; Z88.0 Allergy status to penicillin; Z59.0 Homelessness; Z79.899 Other long term (current) drug therapy; Z79.82 Long term (current) use of aspirin; Z03.818 Encounter for observation for suspected exposure to other biological agents ruled out
CPT/HCPCS: 36415; 36600; 71045; 71275; 80048; 80053; 80202; 80305; 81003; 82140; 82550; 82553; 82607; 82728; 82746; 82803; 82977; 83036; 83540; 83605; 83615; 83690; 83735; 83880; 84100; 84134; 84443; 84484; 85025; 85045; 85379; 85384; 85610; 85651; 85730; 86140; 86592; 87040; 87081; 87086; 87420; 87804; 93005; 93970; 96361; 96365; 96366; 96367; 96375; 96376; 97110; 97112; 97161-GP; 99285; G0482; J0456; J0696; J1940; J2001; J2060; J3370; J3480; J3490; J7030; J7060; P9046; Q0092; Q9967; U0003-CS

== ENCOUNTER 2019-11-26 08:22 | Inpatient (IN) | payer OTHER, SELFPAY ==
[~2019-11-26] VITALS: Ht 165.1 cm; Wt 81.7 kg
[~2019-11-26 08:22] MED LIST changes: -ASPI81CT95 PO; -ATOR20TA40 PO; +CEFT1SOL1 IV; -FURO-570 PO; -LACT10SO1 PO; -LISI-424 PO; -METO25TA PO; -MUPI1OIN2 TP; -SPIR50TA PO; +TAM75 PO; +VANC1FRO IV; -[UNRECOGNIZED DRUG - CODE]
[2019-11-26 08:36] VITALS: BP 101/60
[2019-11-26 09:34] LABS: APPEARANCE,URINE YELLOW (CLEAR); COLOR,URINE CLOUDY (YELLOW)
[2019-11-26 10:13] LABS: BASOPHILS # (AUTO) 0.1 K/uL (0.00-0.22); EOSINOPHILS % (AUTO) 0.2 % (0.0-4.0); HEMATOCRIT 28.2 % (36-52); HEMOGLOBIN 8.7 g/dL (12.0-18.0); LYMPHOCYTES # (AUTO) 0.8 K/uL (2.0-11.5); LYMPHOCYTES % (AUTO) 6.1 % (20.5-51.1); MEAN CORPUSCULAR HEMOGLOBIN 26 pg (27-31); MEAN CORPUSCULAR HGB CONC 31 g/dL (33-37); MEAN CORPUSCULAR VOLUME 84.9 fL (80-94); MONOCYTES # (AUTO) 0.9 K/uL (0.8-1.0); MONOCYTES % (AUTO) 6.6 % (1.7-9.3); NEUTROPHILS # (AUTO) 11.9 K/uL (1.8-7.7); NEUTROPHILS % (AUTO) 86.1 % (42.2-75.2); PLATELET COUNT (AUTO) 127 K/uL (140-450); RED BLOOD CELL COUNT(AUTO) 3.33 MIL/uL (4.20-6.10); RED CELL DISTRIBUTION WIDTH 22.8 % (11.6-13.7); WHITE BLOOD COUNT (AUTO) 13.8 K/uL (4.8-10.8)
[2019-11-26] MEDS ORDERED: diphenhydrAMINE 50 MG/ML VIAL IVP ONE (10:20)
[2019-11-26] MEDS ORDERED: KETOROLAC 30 MG/ML VIAL IVP ONE (10:20)
[2019-11-26 10:28] LABS: ALBUMIN 1.2 g/dL (3.4-5.0); ANION GAP 10.7 (8-16); CARBON DIOXIDE 24.9 mmol/L (21-32); CREATININE 1.2 mg/dL (0.6-1.3); POTASSIUM 3.6 mmol/L (3.5-5.1)
[2019-11-26 10:58] LABS: PROTHROMBIN TIME 14.4 secs (10.8-13.4)
[2019-11-26 10:59] LABS: BARBITURATE, URINE NEG ng/ml (NEG <=200); BENZODIAZEPINE, URINE NEG ng/mL (NEG <=200); CANNABINOID, URINE NEG ng/mL (NEG <=50); COCAINE, URINE NEG ng/mL (NEG <=300); OPIATE, URINE POSITIVE ng/mL (NEG <=2000)
[2019-11-26 11:00] LABS: PHENCYCLIDINE SCREEN,URINE NEG ng/mL (NEG <=25)
[2019-11-26] MEDS ORDERED: FUROSEMIDE 40 MG/4 ML VIAL IVP ONE (11:00)
[2019-11-26] MEDS ORDERED: cefTRIAXone 1,000 MG VIAL ONE (11:11)
[2019-11-26] MEDS ORDERED: ASPIRIN 325 MG TAB PO ONE (11:15)
[2019-11-26 11:16] LABS: BILIRUBIN,URINE 1+ (NEGATIVE); BLOOD, URINE NEG (NEGATIVE); NITRITE, URINE POSITIVE (NEGATIVE); PH,URINE 5.5 (5.0-9.0); UGLUCOSE NEG (NEGATIVE)
[2019-11-26 11:17] LABS: LEUKOCYTE ESTERASE ,URINE NEGATIVE (NEGATIVE); RBC,URINE 0-5 /HPF (0-5); WBC,URINE 0-5 /HPF (0-5); YEAST,URINE Few /HPF (None Seen)
[2019-11-26] MEDS: NACL 0.9% 1,000 ML IV SCH (11:22)
[2019-11-26] MEDS ORDERED: ACETAMINOPHEN 325 MG TAB PO PRN (11:25)
[2019-11-26] MEDS ORDERED: ONDANSETRON 4 MG/2 ML VIAL IM/IVP PRN (11:25)
[2019-11-26] MEDS ORDERED: MORPHINE SULFATE 2 MG/ML SYR IVP PRN (11:25)
[2019-11-26] MEDS ORDERED: DOCUSATE SODIUM 100 MG GELCAP PO PRN (11:25)
[2019-11-26] MEDS ORDERED: HYDROcodone/APAP 7.5/325 MG 1 TAB PO PRN (11:25)
[2019-11-26 11:55] LABS: CHOL/HDL RATIO 6.6 (1-4.5); MAGNESIUM 1.6 mg/dL (1.8-2.4); PHOSPHORUS 3.7 mg/dL (2.5-4.9)
[2019-11-26 12:21] LABS: THYROID STIMULATING HORMONE 45.22 uIU/mL (0.34-3.74)
[2019-11-26 15:50] VITALS: BP 105/67
[2019-11-26] MEDS ORDERED: VANCOMYCIN PER PHARMACY MC PRN (17:00)
[2019-11-26] MEDS ORDERED: FLUCONAZOLE 100 MG TAB PO SCH (17:05)
[2019-11-26] MEDS ORDERED: MAGNESIUM OXIDE 400 MG TAB PO SCH (17:15)
[2019-11-26] MEDS ORDERED: FOAM DRESSING TP PRN (17:30)
[2019-11-26] MEDS ORDERED: VANCOMYCIN HCL 1,500 MG in NACL 0.9% 250 ML IV SCH (18:35)
[2019-11-26 20:00] VITALS: BP 100/62
[2019-11-26] MEDS ORDERED: LACTULOSE 20 GM/30 ML UDC PO SCH (21:00)
[2019-11-26] MEDS ORDERED: METOPROLOL 50 MG TAB PO SCH (21:00)
[2019-11-27] VITALS: BP 112/64
[2019-11-27] MEDS ORDERED: Z-GUARD PASTE TP SCH (01:00)
[2019-11-27] MEDS ORDERED: NACL 0.9% IRR 250 ML BOTTLE IR SCH (01:00)
[2019-11-27 03:40] VITALS: BP 106/68
[2019-11-27] MEDS: NACL 0.9% 1,000 ML IV SCH (04:02)
[2019-11-27] MEDS ORDERED: SPIRONOLACTONE 25 MG TAB PO SCH (09:00)
[2019-11-27] MEDS ORDERED: LACTOBACILLUS RHAMNOSUS GG 1 EACH CAP PO SCH (09:00)
[2019-11-27] MEDS ORDERED: ASPIRIN 81 MG TAB.CHEW PO SCH (09:00)
[2019-11-27] MEDS ORDERED: LISINOPRIL 5 MG TAB PO SCH (09:00)
[2019-11-27] MEDS ORDERED: ATORVASTATIN 20 MG TAB PO SCH (09:00)
[2019-11-27] MEDS ORDERED: FUROSEMIDE 40 MG/4 ML VIAL IVP SCH (09:00)
[2019-11-27 09:21] LABS: T4 (THYROXINE) 6.1 ug/dL (4.5-12.0)
== END 2019-11-27 11:35 | disposition left against medical advice (07) | DRG 871 ==
LOC: MED 08:22 → MTU 11:22 → EEVIPCON 11:22 → MTU 15:24 → MMU 15:32
PROVIDERS: ADMIT General Practice; ATTEND General Practice
DX: A41.9 Sepsis, unspecified organism (principal); G93.41 Metabolic encephalopathy; I50.43 Acute on chronic combined systolic (congestive) and diastolic (congestive) heart failure; E43 Unspecified severe protein-calorie malnutrition; I21.A1 Myocardial infarction type 2; L03.116 Cellulitis of left lower limb; L03.115 Cellulitis of right lower limb; N39.0 Urinary tract infection, site not specified; E83.42 Hypomagnesemia; Z53.29 Procedure and treatment not carried out because of patient's decision for other reasons; D64.9 Anemia, unspecified; R74.0 Nonspecific elevation of levels of transaminase and lactic acid dehydrogenase [LDH]; E87.8 Other disorders of electrolyte and fluid balance, not elsewhere classified; F19.10 Other psychoactive substance abuse, uncomplicated; E03.9 Hypothyroidism, unspecified; R60.0 Localized edema; K72.90 Hepatic failure, unspecified without coma; B19.20 Unspecified viral hepatitis C without hepatic coma; K74.60 Unspecified cirrhosis of liver; Z68.30 Body mass index [BMI] 30.0-30.9, adult; Z90.49 Acquired absence of other specified parts of digestive tract; Z79.899 Other long term (current) drug therapy; Z88.0 Allergy status to penicillin
CPT/HCPCS: 36415; 71045; 80053; 80305; 81001; 82140; 82150; 83036; 83605; 83690; 83735; 83880; 84100; 84436; 84443; 84484; 85025; 85610; 87040; 87081; 87086; 93005; 96365; 96375; 99285; C1758; J0696; J1200; J1644; J1885; J1940; J7030; J7060; Q0092

== ENCOUNTER 2019-11-27 17:48 | Inpatient (IN) | payer OTHER, SELFPAY ==
[~2019-11-27] VITALS: Ht 182.9 cm; Wt 89.8 kg
--- NOTE | 2019-11-27 17:48 | NUR ---
Patient BIBA ALS, transferred to bed 11. RN evaluating patient at bedside.
[2019-11-27 18:05] VITALS: BP 104/76
--- NOTE | 2019-11-27 18:12 | NUR ---
69 YO MALE BIBA DU TO BBEED OUT IN FRONT OF 711. PT PRESENTS WITH PITTING EDEMA BIERL LOWER EXT. PTT WHA APERS O E JOHNSON ON HIS CHEST. PTOES NOT WANT TO COMUNICATE. PMH- HTN, DM, CF, HEP C, ANEMIA
[2019-11-27] MEDS ORDERED: NACL 0.9% 1,000 ML IV SCH (18:17)
--- NOTE | 2019-11-27 18:49 | NUR ---
RAD AT BEDSIDE
[2019-11-27 18:52] LABS: BASOPHILS # (AUTO) 0.1 K/uL (0.00-0.22); BASOPHILS % (AUTO) 1.7 % (0.0-2.0); EOSINOPHILS # (AUTO) 0.1 K/uL (0-0.4); EOSINOPHILS % (AUTO) 1.5 % (0.0-4.0); LYMPHOCYTES # (AUTO) 0.6 K/uL (2.0-11.5); LYMPHOCYTES % (AUTO) 7.1 % (20.5-51.1); MEAN CORPUSCULAR HEMOGLOBIN 27 pg (27-31); MEAN CORPUSCULAR HGB CONC 31 g/dL (33-37); MEAN CORPUSCULAR VOLUME 85.5 fL (80-94); MONOCYTES # (AUTO) 0.4 K/uL (0.8-1.0); MONOCYTES % (AUTO) 4.9 % (1.7-9.3); NEUTROPHILS # (AUTO) 6.6 K/uL (1.8-7.7); NEUTROPHILS % (AUTO) 84.8 % (42.2-75.2); PLATELET COUNT (AUTO) 94 K/uL (140-450); RED BLOOD CELL COUNT(AUTO) 2.57 MIL/uL (4.20-6.10); RED CELL DISTRIBUTION WIDTH 23.2 % (11.6-13.7); WHITE BLOOD COUNT (AUTO) 7.8 K/uL (4.8-10.8)
[2019-11-27 18:59] LABS: HEMOGLOBIN 6.8 g/dL (12.0-18.0)
[2019-11-27] MEDS ORDERED: NACL 0.9% 2,000 ML IV ONE (19:15)
--- NOTE | 2019-11-27 19:18 | NUR ---
REPORT RECEIVED FROM LUCY DASILVA FOR CONTINUATION OF CARE.
[2019-11-27 19:19] LABS: ALBUMIN 1.1 g/dL (3.4-5.0); ANION GAP 18.1 (8-16); CARBON DIOXIDE 18.8 mmol/L (21-32); CREATININE 1.9 mg/dL (0.6-1.3); POTASSIUM 3.9 mmol/L (3.5-5.1)
[2019-11-27 19:22] LABS: PROTHROMBIN TIME 17.8 secs (10.8-13.4)
--- NOTE | 2019-11-27 19:45 | NUR ---
Dr. Mccauley is evaluating the patient at bedside.
[2019-11-27] MEDS ORDERED: ACETAMINOPHEN 325 MG TAB PO PRN (20:00)
[2019-11-27] MEDS ORDERED: ONDANSETRON 4 MG/2 ML VIAL IVP PRN (20:00)
[2019-11-27] MEDS ORDERED: VANCOMYCIN PER PHARMACY MC PRN (20:10)
--- NOTE | 2019-11-27 20:10 | NUR ---
URINE SAMPLE COLLECTED. PT PROVIDED W/ WATER FOR COMFORT.
--- NOTE | 2019-11-27 20:15 | NUR ---
CRITICAL LAB TROPONIN 0.201 , ERMD MADE AWARE.
[2019-11-27] MEDS: DOCUSATE SODIUM 100 MG GELCAP PO SCH (21:00)
--- NOTE | 2019-11-27 21:00 | NUR ---
pt provided water for comfort.
[2019-11-27 21:42] LABS: BILIRUBIN,URINE NEGATIVE (NEGATIVE); BLOOD, URINE TRACE-I (NEGATIVE); LEUKOCYTE ESTERASE ,URINE NEGATIVE (NEGATIVE); NITRITE, URINE NEGATIVE (NEGATIVE); UGLUCOSE NEGATIVE (NEGATIVE)
--- NOTE | 2019-11-27 21:46 | NUR ---
UNABLE TO INSERT IV AT THIS TIME , ADMITTING RESIDENT MADE AWARE.
--- NOTE | 2019-11-27 21:49 | NUR ---
BLOOD IS READY FOR BRAILLE PROOFREADER AT LAB, WAITING FOR IV INSERTION AT THIS TIME.
[2019-11-27] MEDS ORDERED: LORazepam 2 MG/ML VIAL IVP SCH (21:50)
[2019-11-27 21:57] LABS: APPEARANCE,URINE CLEAR (CLEAR); COLOR,URINE YELLOW (YELLOW)
[2019-11-27] MEDS ORDERED: LORazepam 2 MG/ML VIAL ONE (22:39)
--- NOTE | 2019-11-27 22:45 | NUR ---
PER ADMITTING DR. DENNY, D/C ATIVAN 1 MG ORDER FOR IVP . PER DR. DENNY, ADMINISTER 1MG ATIVAN IM. DR. DENNY ALSO REQUESTIONS 300 UNITS OF HEPARIN FLUSH FOR CENTRAL LINE INSERTION.
--- NOTE | 2019-11-27 22:50 | NUR ---
DR. DENNY AND KOJO, EMT AT BEDSIDE FOR CENTRAL LINE INSERTION.
--- NOTE | 2019-11-27 22:50 | NUR ---
IM ATIVAN 1 MG ADMINISTERED TO PT RIGHT DELTOID. 300 UNITS HEPARIN FLUSH GIVEN TO DR. DENNY.
--- NOTE | 2019-11-27 23:58 | NUR ---
PT RESTING IN BED, LOCKED AND IN LOWEST POSITION ,HOB ELEVATED, SIDE RAIL X2 FOR PT SAFETY. RR EVEN AND UNLABORED, VSS. PT PROVIDED WATER FOR COMFORT.
--- NOTE | 2019-11-28 00:26 | NUR ---
Consent signed per PT agreeing to administration of blood. Blood has been type and crossmatched. Blood sent from blood bank. Information on unit of blood checked against patient wristband at bedside by two nurses. All information matches. Patient or responsible green party informed of potential complications associated with blood transfusion. Informed of possible transfusion reaction symptoms. Aware of need to notify nurse at once of itching, shortness of breath, flushing, feeling of impending doom, or other symptoms not previously present. Vital signs taken within 5 minutes prior to initiation of transfusion. RN will remain with patient for first 15 minutes of transfusion at which time vital signs will be re-assessed.
[2019-11-28 00:30] LABS: RBC,URINE 0-5 /HPF (0-5); URIC ACID CRYSTALS,URINE 0-10 /HPF (None Seen); WBC,URINE 0-5 /HPF (0-5)
--- NOTE | 2019-11-28 00:41 | NUR ---
NO ADVERSE REACTION NOTED AT THIS TIME. PT RESTING IN BED, LOCKED AND IN LOWEST POSITION, HOB ELEVATED, RR EVEN AND UNLABORED, VSS.
--- NOTE | 2019-11-28 01:46 | NUR ---
PT RESTING ON BED. NEEDS ATTENDED. NO COMPLAINS NOTED.
--- NOTE | 2019-11-28 02:38 | NUR ---
PT SLEEPING IN BED, AROUSABLE TO VERBAL STIMULATION, VISIBLE RISE AND FALL OF CHEST, HOB ELEVATED, SIDE RAILS X2 FOR PT SAFETY. RR EVEN AND UNLABORED, VSS.
--- NOTE | 2019-11-28 02:46 | NUR ---
PT PROVIDED URINAL .
[2019-11-28] MEDS ORDERED: VANCOMYCIN HCL 1,250 MG in NACL 0.9% 250 ML IV SCH (03:00)
[2019-11-28] MEDS: LEVOFLOXACIN 750 MG/D5W PREMIX 150 ML IV SCH (03:25)
--- NOTE | 2019-11-28 04:55 | NUR ---
PT RESTING IN BED, AROUSABLE TO VERBAL STIMULATION, BED LOCKED AND IN LOWEST POSITION, VISIBLE RISE AND FALL OF CHEST, HOB ELEVATED, SIDE RAIL X2 FOR PT SAFETY. PT VSS. RR EVEN AND UNLABORED.
[2019-11-28] MEDS ORDERED: VANCOMYCIN 1,000 MG VIAL ONE (05:06)
--- NOTE | 2019-11-28 05:47 | NUR ---
Patient will be admitted to care of DR. MALAVE. Admited to TELEMETRY. Will go to room 105B. Belongings list completed. Report to LUCY WEINBERG.
[2019-11-28] MEDS: NACL 0.9% 1,000 ML IV SCH ×2 (07:03→07:14)
--- NOTE | 2019-11-28 07:05 | NUR ---
RECEIVED FROM ED; PT WITH CENTRAL LINE, A A O X 4; WITH MULTIPLE JOHNSON, MRSA SWAB DOINE, VITAL SIGNS TAKEN.POC REVIEWED ORIENTED TO UNIT. Addendum: 11/28/19 at 0813 by Carla Ny RN CHANGED TO AAO X 3 WITH CONFUSION ( TO TIME AND DATE)
--- NOTE | 2019-11-28 07:06 | NUR ---
WILL GIVE THE VANCOMYCIN 1250 MG, DISCARDED 750 MG FROM THE 2000 GRAMS ( 2 VIALS)
--- NOTE | 2019-11-28 07:07 | NUR ---
PT ALSO HAS AN OPEN WOUND ON HIS RIGHT LATERAL SIDE OF FOOT, PHOTOS ATTACHED; AND BILATERAL L.E CELLULITIS.
--- NOTE | 2019-11-28 07:08 | NUR ---
PATIENT DOES NOT KNOW WHAT DATE/TIME IT IS WHEN ASKED, PT'S MENTAL STATUS CHANGED TO AAO X 3.
--- NOTE | 2019-11-28 07:18 | NUR ---
ENDORSED TO NEXT SHIFT, WITH MULTIPLE WOUNDS ON BILATERAL FEET AND JOHNSON ON HIS CHEST AND ARMS.
--- NOTE | 2019-11-28 07:19 | NUR ---
PATIENT HAS BEEN SCREENED AND CATEGORIZED MODERATE NUTRITION RISK. PATIENT WILL BE SEEN WITHIN 3-5 DAYS OF ADMISSION. 11/30/19 - 12/02/19 RADHA JAUREGUI MBA, RD
--- NOTE | 2019-11-28 07:35 | NUR ---
RECEIVED PATIENT FROM OPERATOR CAVITY PUMP NURSE FOR CONTINUITY OF CARE. PATIENT IS AAOX4, UKRAINIAN SPEAKING. RESPIRATIONS EVEN AND UNLABORED, ROOM AIR. VISIBLE CHEST RISE AND FALL NOTED, ON TELE MONITORING. SKIN WARM AND DRY. BRUISING IN THE UPPER EXTREMITIES. SHALLOW ULCERS IN R LE. BILAT LE CELLULITIS, SKIN RED IN COLOR. RIGHT IJ 3L, SALINE LOCK. PATIENT IS AMBULATORY. ON STANDARD ISOLATION. SAFETY MEASURES IN PLACE. BED IN LOW POSITION. CALL LIGHT IS WITHIN REACH. WILL CONTINUE TO MONITOR.
[2019-11-28 08:00] VITALS: BP 106/63
[2019-11-28] MEDS: HYDROcodone/APAP 7.5/325 MG 1 TAB PO PRN ×2 (08:10→18:07)
[2019-11-28] MEDS: DOCUSATE SODIUM 100 MG GELCAP PO SCH ×2 (08:10→21:00)
--- NOTE | 2019-11-28 08:10 | NUR ---
GIVEN COLACE PER MD ORDER. GIVEN NORCO FOR BLE PAIN OF 6/10. WILL REASSESS FOR PAIN IN AN HOUR. WILL CONTINUE TO MONITOR. PT IS EATING BREAKFAST AT THIS TIME.
--- NOTE | 2019-11-28 09:42 | NUR ---
GIVEN ANOTHER CUP OF COFFEE, WIPES, AND, AND 3 SMALL TOWELS PER PATIENT'S REQUEST.
--- NOTE | 2019-11-28 10:25 | NUR ---
SPOKE TO DR. MALAVE REGARDING LABS. HE WILL ORDER ANOTHER CBC. PATIENT GOT BLOOD TRANSFUSION AROUND 0300 AM IN ED FOR HGB OF 6.8.
--- NOTE | 2019-11-28 11:28 | NUR ---
CHANGED CENTRAL LINE DRESSING. PATIENT TOLERATED WELL. CLEANSED AND PAT DRIED WOUNDS, COVERED WITH ISLAND DRESSINGS. BLE LEGS SWOLLEN, RED SKIN COLOR. PATIENT C/O OF PAIN TO BOTH LEGS, ALSO STATED THAT NORCO DID NOT HELP RELIEVE THE PAIN. WILL INFORM RESIDENT DOCTOR
--- NOTE | 2019-11-28 11:31 | NUR ---
REMINDED PATIENT TO BE NPO FOR LUNCH FOR THE [facility] ULTRASOUND. PATIENT IS VERY NONCOMPLIANT WITH CARE, NEEDS REINFORCEMENT
[2019-11-28 12:00] VITALS: BP 98/73
--- NOTE | 2019-11-28 12:27 | NUR ---
PATIENT IS POSITIVE FOR MRSA STAPH AUREUS. Addendum: 11/28/19 at 1240 by Princess Justine Morales RN CALLED LAB TO CLARIFY, BURRING WHEEL OPERATOR FERNANDA STATED THAT THIS TEST RESULT WAS ON THE November.
--- NOTE | 2019-11-28 12:42 | NUR ---
F/U WITH LAB THE ORDERED CBC BY FRIEDA FOR TODAY'S LAB. STEFFEN STATED THEY WILL DRAW THE BLOOD SOON.
--- NOTE | 2019-11-28 13:25 | NUR ---
SPOKE TO PATIENT REGARDING HIS MEDICATIONS GIVEN FROM [facility], HE IS REQUESTING TO HAVE THEM AT THIS THIS HOSPITAL. HE LISTED LASIX AND HYDROCHLOROTHIAZIDE. WILL NOTIFY RESIDENT DOCTOR.
--- NOTE | 2019-11-28 13:32 | NUR ---
SPOKE TO DR. MALAVE REGARDING PATIENT'S REQUEST OF MEDICATIONS. DISCUSSED EDEMA IN BLE AND CELLULITIS. DR. MALAVE SAID THEY WILL MAKE A DECISION IF MEDICATIONS NEED TO BE INCLUDED TO HIS CURRENT MEDICATIONS HERE. WILL INFORM PATIENT
--- NOTE | 2019-11-28 14:00 | NUR ---
DR. LOPEZ MADE AWARE PATIENT'S GROIN AND PENIS SWELLING. SHE ALSO WILL PUT IN AN ORDER FOR MORPHINE. SHE WILL LOOK INTO LASIX AND HYDROCHLOROTHIAZIDE
[2019-11-28] MEDS ORDERED: MORPHINE SULFATE 4 MG/ML SYR ONE (14:57)
[2019-11-28] MEDS: MORPHINE SULFATE 4 MG/ML SYR IVP PRN ×2 (14:58→21:05)
--- NOTE | 2019-11-28 14:58 | NUR ---
MORPHINE GIVEN FOR 9/10 BLE LEG PAIN. GIVEN MEDICATION EDUCATION. BP 98/63, HR 73. WILL REASSESS FOR PAIN IN AN HOUR.
--- NOTE | 2019-11-28 15:10 | NUR ---
REMINDED PATIENT AGAIN NOT TO HAVE ANY PO INTAKE PRIOR TO THE [facility] ABDOMEN US. PATIENT NEEDS REINFORCEMENT
--- NOTE | 2019-11-28 15:46 | NUR ---
PATIENT IS STILL C/O OF BLE LEG PAIN. MORPHINE WAS GIVEN BUT WAS INEFFECTIVE. WILL NOTIFY RESIDENT
--- NOTE | 2019-11-28 15:47 | NUR ---
GIVEN CHUCKS PER PATIENT'S REQUEST.
--- NOTE | 2019-11-28 15:48 | NUR ---
PATIENT WAS LOOKING FOR A BLACK LEATHER JACKET. NO LEATHER JACKET FOUND INSIDE THE ROOM/CABINETS. BELONGINGS LIST FROM ED DOES NOT STATE ANY LEATHER JACKET JUST PANTS AND SHIRT. PATIENT INSISTING HE HAS WITH HIM WHEN HE ARRIVED IN THIS UNIT.
[2019-11-28 16:00] VITALS: BP 106/63
--- NOTE | 2019-11-28 16:34 | NUR ---
DISCHARGE PLANNING: THIS IS A 69 Y/O MALE PATIENT FROM HOME, WHO CAME IN DUE TO ALOC. PAST MEDICAL HISTORY INCLUDE CHF, CIRRHOSIS DUE TO HEP C, CHRONIC LEG EDEMA, BLE STASIS DERMATITIS. INITIAL DIAGNOSIS OF CELLULITIS. CXR ON ADMISSION SHOWED IMPROVED EXPANSION OF THE LUNGS. ON LEVOFLOXACIN AND VANCOMYCIN. URO, CARDIO AND PSYCH CONSULTS IN PLACE. DC PLAN BACK TO HOME ONCE STABLE. Addendum: 12/01/19 at [address] MALAVE MADE AWARE THAT THE LAST COVID TEST DONE WAS ON 11/22/2019. Addendum: 12/01/19 at 1229 by Yoli Oquendo MET WITH THE PATIENT AT THE BEDSIDE TO DISCUSS DC PLANNING TO [facility] AND IN AGREEMENT. WHEN ASKED IF HE HAS ANY PREFERENCE, HE STATED NO. IMM LETTER DISCUSSED WELL, NO QUESTIONS ASKED AT THIS TIME. Addendum: 12/01/19 at 1409 by Yoli Oquendo REFERRAL SENT TO [facility]. [facility], LONG IT IS WITHIN [address] MALAVE MADE AWARE AND WILL DC PATIENT. GIOVANNI OF [facility] MADE AWARE. PATIENT WILL GO TO ROOM 214A UNDER DR. ROJAS. PER GIOVANNI THEY WILL ARRANGE FOR TRANSPORT AND WILL CALL BACK WITH ETA. PRIMARY RN PALMA MADE AWARE. PER GIOVANNI ALVAREZ [facility], [facility] WILL BE AT 18OO WITH [facility] [employer] [facility]. PRIMARY RN MADE AWARE.
--- NOTE | 2019-11-28 17:57 | NUR ---
DINNER TRAY PASSED. PATIENT WILL EAT DINNER. WILL BE NPO AFTER MIDNIGHT FOR THE US ABDOMEN COMPLETE
--- NOTE | 2019-11-28 17:58 | NUR ---
SPOKE TO DR. ALLEN FOR NPO AFTER MIDNIGHT ORDER.
--- NOTE | 2019-11-28 18:07 | NUR ---
PATIENT GIVEN NORCO FOR 6/10 CONSTANT ACHING PAIN IN BILATERAL LOWER EXTREMITIES, BP 101/64, PT CURRENTLY LYING SUPINE IN BED. INSTRUCTED TO REMAIN IN BED, PT VERBALIZED UNDERSTANDING. WILL CONTINUE TO MONITOR PATIENT PAIN LEVEL. ALL NEEDS MET CALL LIGHT WITHIN REACH WILL CONTINUE TO MONITOR
--- NOTE | 2019-11-28 19:18 | NUR ---
REPORT GIVEN TO NEEDLEMAKER NURSE REGARDING PATIENT CONDITION AND PLAN OF CARE, MADE AWARE OF PATIENT ORDER TO BE NPO AFTER MIDNIGHT. VERBALIZED UNDERSTANDING. ENDORSED TO NEEDLEMAKER NURSE FOR WOUND CARE CONSULT WELL. PATIENT IS CURRENTLY RESTING COMFORTABLY IN BED, IN NO S/S RESPIRATORY DISTRESS, NO COMPLAINTS OF PAIN, ALL NEEDS MET, CALL LIGHT WITHIN REACH, CONTACT PRECAUTIONS FOLLOWED.
[2019-11-28 20:00] VITALS: BP 101/70
--- NOTE | 2019-11-28 20:00 | NUR ---
RECEIVED REPORT FROM DAY RN FOR CONTINUITY OF CARE.RECEIVED PATIENT ASLEEP BUT AROUSABLE. PT A/A/OX3. NO C/O PAIN AT THIS TIME. NO S/SX OF DISTRESS NOTED. SHOWING ACCELERATED JUNCTIONAL RHYTHM ON CARDIAC CATHETERIZATION TECHNICIAN, HR-72. VSS, AFEBRILE, SATING 98% ON RA. FALL PRECAUTION IMPLEMENTED. INSTRUCTED TO CALL FOR ASSISTANCE AT ALL TIMES.C ALL LIGHT WITHIN REACH. WILL CONTINUE POC AND MONITORING.
[2019-11-28] MEDS: QUEtiapine FUMARATE 25 MG TAB PO SCH (21:05)
--- NOTE | 2019-11-28 22:00 | NUR ---
ADMINISTERED ALL THE SCHEDULED MEDICATION ORDERED. MEDICATED THE PT FOR PAIN EARLIER ORDERED. PAIN RELIEVED. NO C/O PAIN AT THIS TIME. PT ASLEEP AND AROUSABLE. CALL LIGHT WITHIN REACH.
[2019-11-29] VITALS: BP 93/56
--- NOTE | 2019-11-29 | NUR ---
BP LOW 93/56, HR-76,AFEBRILE, SATING 97% ON RA. SR WITH PVC ON SUPERVISOR HYDROCHLORIC AREA, HR-76. WILL CONTINUE TO MONITOR THE PT. CALL LIGHT WITHIN REACH.
--- NOTE | 2019-11-29 02:00 | NUR ---
PT ASLEEP AND AROUSABLE. PT INCONTINENT WITH URINE. CHANGED AND LILLY CARE DONE. REPOSITIONED FOR COMFORT.
[2019-11-29 04:00] VITALS: BP 92/52
--- NOTE | 2019-11-29 04:00 | NUR ---
PT ASLEEP AND AROUSABLE. BP 92/52, HR-75, AFEBRILE, SATING 96% ON RA. SR ON SOCK AND STOCKING IRONER, HR-84.
--- NOTE | 2019-11-29 06:39 | NUR ---
PT STABLE. NO ACUTE EVENTS THROUGHOUT THE NIGHT. NO S/SX OF DISTRESS NOTED. NO COMPLAIN AT THIS TIME. ALL NEEDS ATTENDED. CALL LIGHT WITHIN REACH. WILL ENDORSE THE PT TO THE ONCOMING RN FOR CONTINUITY OF CARE.
[2019-11-29 07:00] LABS: ANION GAP 10.1 (8-16); CARBON DIOXIDE 24.1 mmol/L (21-32); POTASSIUM 4.2 mmol/L (3.5-5.1)
--- NOTE | 2019-11-29 07:20 | NUR ---
RECEIVED REPORT FROM MEAT CUTTER NURSE REGARDING PATIENT CONDITION AND PLAN OF CARE. PATIENT CURRENTLY RESTING IN BED IN NO S/S RESPIRATORY DISTRESS, HAS NO APPEARANCE OF PAIN AT THIS TIME.ALL NEEDS MET, CALL LIGHT WITHIN REACH, WILL CONTINUE TO MONITOR. CONTACT ISOLATION PRECAUTIONS FOLLOWED.
[2019-11-29 08:00] VITALS: BP 99/63
[2019-11-29] MEDS: DOCUSATE SODIUM 100 MG GELCAP PO SCH ×2 (09:00→21:00)
[2019-11-29 09:16] LABS: HEMOGLOBIN 7.5 g/dL (12.0-18.0); PLATELET COUNT (AUTO) 84 K/uL (140-450); RED BLOOD CELL COUNT(AUTO) 2.73 MIL/uL (4.20-6.10); WHITE BLOOD COUNT (AUTO) 4.7 K/uL (4.8-10.8)
[2019-11-29 09:30] LABS: MAGNESIUM 1.4 mg/dL (1.8-2.4)
[2019-11-29 09:47] LABS: HEMATOCRIT 23.6 % (36-52); MEAN CORPUSCULAR HEMOGLOBIN 27 pg (27-31); MEAN CORPUSCULAR HGB CONC 32 g/dL (33-37); MEAN CORPUSCULAR VOLUME 86.5 fL (80-94); RED CELL DISTRIBUTION WIDTH 22.9 % (11.6-13.7)
--- NOTE | 2019-11-29 10:00 | NUR ---
PATIENT RESTING IN BED, ASLEEP BUT EASILY AROUSABLE, NO COMPLAINTS OF PAIN AT THIS TIME. NO S/S RESPIRATORY DISTRESS , CURRENTLY ON ROOM AIR. ALL NEEDS MET, CALL LIGHT WITHIN REACH, WILL CONTINUE TO MONITOR.
[2019-11-29 10:46] LABS: BASOPHILS % (MANUAL) 0 % (0-2); EOSINOPHILS % (MANUAL) 0 % (0-4); LYMPHOCYTES % (MANUAL) 7 % (20-46); MONOCYTES % (MANUAL) 2 % (5-12)
--- NOTE | 2019-11-29 11:05 | NUR ---
SEAL SKINNER NOTE: Patient's Orientation Person Situation Place Time Information Provided By PATIENT Comments SW MET WITH PATIENT AT BEDSIDE. PATIENT WAS GUARDED AND UNCOOPERATIVE. PATIENT ANSWERED WITH SHORT RESPONSES AND REFUSED TO COMPLETE ASSESSMENT. Hydraulic Press In Operator, Realtionship and Phone Number N/A Healthcare Power of Forest Supervisor No Does Patient Have a POLST No Identifying Problems Homelessness/Housing Is A Social Work Consult Needed No Mandate Report Filed No Explanation Of Identifying Problems PATIENT IS A 69-YEAR-OLD MALE ADMITTED FOR CELLULITIS. PATIENT HAS PMHX OF CHF, CIRRHOSIS, HEP C, CHRONIC LEG EDEMA, BILATERAL LOWER EXTREMITY STASIS AND DERMATITIS. Admitted From HOMELESS Pre-Admission Level Of Functioning Status Independent/Ambulatory Prior Resources/Services Used In Last 12 Months Homeless Resources Prior Resources/Service Comments SW PROVIDED ADDITIONAL HOMELESS RESOURCES. Prior DME No Prior DME Used Living Situation Homeless Patient Had Caregiver No Home Support No Caregiver Issues Referral To The Financial Counselor Needed No Factors/Needs Drug/Alcohol Treatment Community Resources Explanation And Or Other Factors Affecting/Possible DC Needs SW PROVIDED HOMELESS RESOURCES AND SUBSTANCE ABUSE RESOURCES. Pt/Rep Participated In Discharge Plan Yes Patient/Family Agress With Discharge Plan Yes Discharge Plan Comments TENTATIVE DISCHARGE PLAN IS FOR PATIENT TO COORDINATE LIVING ARRANGEMENTS WITH RESOURCES PROVIDED. DC Plan Status Initiated
[2019-11-29 12:00] VITALS: BP 124/75
--- NOTE | 2019-11-29 12:43 | NUR ---
NO TROUGH LEVEL RESULT YET, SPOKE WITH GIGI PHARMACIST STATES THAT IT IS OKAY TO HANG VANCOMYCIN NOW FIRST DOSE, NOTED AND WILL CARRY OUT.
[2019-11-29 13:16] LABS: BARBITURATE, URINE NEGATIVE ng/ml (NEG <=200); BENZODIAZEPINE, URINE NEGATIVE ng/mL (NEG <=200); CANNABINOID, URINE NEGATIVE ng/mL (NEG <=50); COCAINE, URINE NEGATIVE ng/mL (NEG <=300); OPIATE, URINE POSITIVE ng/mL (NEG <=2000); PHENCYCLIDINE SCREEN,URINE NEGATIVE ng/mL (NEG <=25)
[2019-11-29] MEDS: VANCOMYCIN 1,000 MG in DEXTROSE 5% 250 ML IV SCH ×2 (13:22→23:20)
--- NOTE | 2019-11-29 14:00 | NUR ---
PATIENT STILL RESTING IN BED, ASLEEP BUT EASILY AROUSABLE, NO COMPLAINTS OF PAIN AT THIS TIME. NO S/S RESPIRATORY DISTRESS , CURRENTLY ON ROOM AIR. PATIENT REPOSITIONS SELF. ALL NEEDS MET, CALL LIGHT WITHIN REACH, WILL CONTINUE TO MONITOR.
--- NOTE | 2019-11-29 14:12 | NUR ---
TALKED TO DR. MALAVE, MADE AWARE PT MD TIFFANIE SAID CONTINUE DIET.
[2019-11-29 16:00] VITALS: BP 125/74
--- NOTE | 2019-11-29 16:00 | NUR ---
PATIENT RESTING IN BED, ASLEEP BUT EASILY AROUSABLE, NO COMPLAINTS OF PAIN AT THIS TIME. PATIENT COMPLAINS FEELING COLD, WARM BLANKET GIVEN, TEMPERATURE IS 97.1, HAS NO FEVER OR CHILLS AT THIS TIME. NO S/S RESPIRATORY DISTRESS , CURRENTLY ON ROOM AIR. ALL NEEDS MET, CALL LIGHT WITHIN REACH, WILL CONTINUE TO MONITOR.
--- NOTE | 2019-11-29 18:00 | NUR ---
PATIENT STILL RESTING IN BED, ASLEEP BUT EASILY AROUSABLE, NO COMPLAINTS OF PAIN AT THIS TIME. NO S/S RESPIRATORY DISTRESS , CURRENTLY ON ROOM AIR. ALL NEEDS MET, CALL LIGHT WITHIN REACH, WILL CONTINUE TO MONITOR.
--- NOTE | 2019-11-29 19:28 | NUR ---
PATIENT RESTING COMFORTABLY IN BED, IN NO S/S RESPIRATORY DISTRESS, NO C/O OF PAIN AT THIS TIME. PATIENT STATUS AND PLAN OF CARE ENDORSED TO CUFFER NURSE. CALL LIGHT WITHIN REACH, ALL NEEDS MET, CONTACT PRECAUTIONS FOLLOWED.
--- NOTE | 2019-11-29 19:40 | NUR ---
RECEIVED REPORT FROM DAY RN FOR CONTINUITY OF CARE.RECEIVED PATIENT ASLEEP BUT AROUSABLE. NO C/O PAIN AT THIS TIME. NO S/SX OF DISTRESS NOTED. SHOWING JUNCTIONAL RHYTHM ON COAL INSPECTOR, HR-88. FALL PRECAUTION AND ISOLATION PRECAUTION IMPLEMENTED. INSTRUCTED TO CALL FOR ASSISTANCE AT ALL TIMES.CALL LIGHT WITHIN REACH. WILL CONTINUE POC AND MONITORING.
[2019-11-29 20:00] VITALS: BP 117/76
[2019-11-29] MEDS: QUEtiapine FUMARATE 25 MG TAB PO SCH ×3 (21:00→21:29)
[2019-11-29] MEDS: CLINDAMYCIN 600 MG in DEXTROSE 5% 50 ML IV SCH (21:24)
--- NOTE | 2019-11-29 22:00 | NUR ---
ADMINISTERED SCHEDULED MEDS. PATIENT REFUSED HIS SEROQUEL AND COLACE. WILL CONTINUE POC. CALL LIGHT WITHIN REACH.
[2019-11-30] VITALS: BP 122/68
--- NOTE | 2019-11-30 | NUR ---
VITAL SIGNS STABLE, AFEBRILE, SATING 98% ON RA. SR WITH PAC ON WOOD AND WOOD PRODUCTS LABOURER, HR-91. SAFETY MEASURES IN PLACED.
[2019-11-30] MEDS: VANCOMYCIN 1,000 MG in DEXTROSE 5% 250 ML IV SCH ×2 (00:36→12:21)
[2019-11-30] MEDS: LEVOFLOXACIN 750 MG/D5W PREMIX 150 ML IV SCH (01:39)
--- NOTE | 2019-11-30 01:48 | NUR ---
PATIENT ASLEEP. VISIBLE CHEST RISE AND FALL NOTED. NOT IN ANY DISTRESS. CALL LIGHT WITHIN REACH.
[2019-11-30 04:00] VITALS: BP 107/59
--- NOTE | 2019-11-30 04:00 | NUR ---
PT ASLEEP AND NO COMPLAIN OF PAIN AT THIS TIME. VSS, AFEBRILE, SATING 96% ON RA. SR ON TELE MONITOR, HR-81. CALL LIGHT WITHIN REACH.
[2019-11-30] MEDS: CLINDAMYCIN 600 MG in DEXTROSE 5% 50 ML IV SCH ×3 (04:55→22:00)
[2019-11-30 07:03] LABS: ANION GAP 11.2 (8-16); CARBON DIOXIDE 22.6 mmol/L (21-32); CREATININE 0.9 mg/dL (0.6-1.3); POTASSIUM 3.8 mmol/L (3.5-5.1)
--- NOTE | 2019-11-30 07:42 | NUR ---
RECEIVED REPORT FROM PM RNMALLORY. PT IS RESTING IN BED NO SIGNS OF DISTRESS. ISOLATION PRECAUTIONS IMPLEMENTED FOR MRSA IN THE NARES. JUNCTIONAL RHYTHM CAPTURED ON TELE. PT IS ABLE TO AMBULATE WITH ASSISTANCE. PT HAS WEEPING CELLULITIS LOWER EXTREMITY. WOUND ON RT BUTTOCKS WITH DRESSING PLACED. WOUND CONSULT INITIATED. VANCO TROUGH DUE AT 1000 FOR 1100 MED PASS. WILL CONTINUE TO MONITOR.
[2019-11-30 08:00] VITALS: BP 119/64
[2019-11-30] MEDS: DOCUSATE SODIUM 100 MG GELCAP PO SCH ×2 (08:43→22:00)
--- NOTE | 2019-11-30 10:25 | NUR ---
KATHLEEN BLOOD FROM RT IJ TRIPLE LUMEN [facility]O [facility]. LAB COLLECTED BLOOD SAMPLES. PT TOLERATED PROCEDURE WELL. PT IS RESTING IN BED, EYES CLOSED.
[2019-11-30 12:00] VITALS: BP 104/64
[2019-11-30] MEDS: MORPHINE SULFATE 4 MG/ML SYR IVP PRN (13:57)
[2019-11-30] MEDS ORDERED: MUPIROCIN 2% OINT 22 GM TUBE TP SCH ×2 (15:00)
[2019-11-30] MEDS ORDERED: CHLORHEXADINE GLUC 2% CLOTH TP SCH (15:00)
--- NOTE | 2019-11-30 15:30 | NUR ---
ASSISTED WITH HELPING CLEAN PT AND GIVING HIM NEW LINENS. VS STABLE.
--- NOTE | 2019-11-30 15:35 | NUR ---
CALLED DR. MALAVE FOR NEW PAIN MED ORDER.
[2019-11-30 16:00] VITALS: BP 125/79
--- NOTE | 2019-11-30 16:15 | NUR ---
PT RESTING IN BED, EYES CLOSED. NO SIGNS OF DISTRESS. RESPIRATIONS EVEN AND UNLABORED. VS STABLE. PAIN MED GIVEN. PT TOLERATED WELL.
[2019-11-30] MEDS: GABAPENTIN 300 MG CAP PO SCH (16:23)
--- NOTE | 2019-11-30 19:39 | NUR ---
TRANSFER OF CARE TO PM RNCURTIS. PT IS RESTING IN BED, EYES OPEN. NO SIGNS OF DISTRESS. RESPIRATIONS EVEN AND UNLABORED. VS STABLE.
--- NOTE | 2019-11-30 19:39 | NUR ---
RECEIVED PT AAOX4 , NID , W/ TRIPLE IJ , O2 SAT WNL . DENIED ANY PAIN . W/ LIZANDRO. CELLULITIS , SAFETY MEASURES IN PLACE , 4 SIDERAILS UP - CALL LIGHT WITHIN REACH . PLAN OF CARE DISCUSSED - VERBALIZE UNDERSTANDING - NEEDS REINFORCEMENT .WILL CONT. TO MONITOR.
[2019-11-30 20:00] VITALS: BP 123/70
[2019-11-30] MEDS ORDERED: LEVOFLOXACIN 750 MG/D5W PREMIX 150 ML IV SCH (21:00)
--- NOTE | 2019-11-30 22:00 | NUR ---
MADE ROUNDS , NO COMPLAIN MADE .
[2019-12-01] VITALS: BP 122/65
--- NOTE | 2019-12-01 | NUR ---
MADE ROUNDS , NO S/SX O9F ACUTE DISTRESS NOTED .
[2019-12-01 04:00] VITALS: BP 118/60
--- NOTE | 2019-12-01 04:00 | NUR ---
MADE ROUNDS , NO S/SX OF ACUTE DISTRESS NOTED . WILL CONT. TO MONITOR,.
[2019-12-01] MEDS: CLINDAMYCIN 600 MG in DEXTROSE 5% 50 ML IV SCH ×2 (04:49→13:07)
--- NOTE | 2019-12-01 06:00 | NUR ---
RESTING ON BED - NO COMPLAIN MADE
--- NOTE | 2019-12-01 07:00 | NUR ---
RECEIVED REPORT FROM EMERGENCY MEDICAL TECH NURSE REGARDING PATIENT STATUS AND PLAN OF CARE. PATIENT CURRENTLY RESTING IN BED, ASLEEP. CURRENTLY ON ROOM AIR, IN NO S/S RESPIRATORY DISTRESS, NO APPEARANCE OF PAIN AT THIS TIME. ALL NEEDS MET, CALL LIGHT WITHIN REACH. CONTACT PRECAUTIONS FOLLOWED.
--- NOTE | 2019-12-01 07:00 | NUR ---
ENDORSED TO AM SHIFT - PT - STABLE .
[2019-12-01 07:03] LABS: BASOPHILS # (AUTO) 0.1 K/uL (0.00-0.22); BASOPHILS % (AUTO) 1.7 % (0.0-2.0); EOSINOPHILS % (AUTO) 0.5 % (0.0-4.0); HEMATOCRIT 27.7 % (36-52); HEMOGLOBIN 8.7 g/dL (12.0-18.0); LYMPHOCYTES % (AUTO) 18.6 % (20.5-51.1); MEAN CORPUSCULAR HEMOGLOBIN 27 pg (27-31); MEAN CORPUSCULAR HGB CONC 32 g/dL (33-37); MEAN CORPUSCULAR VOLUME 86.5 fL (80-94); MONOCYTES # (AUTO) 0.6 K/uL (0.8-1.0); MONOCYTES % (AUTO) 12.2 % (1.7-9.3); NEUTROPHILS # (AUTO) 3.5 K/uL (1.8-7.7); PLATELET COUNT (AUTO) 117 K/uL (140-450); RED CELL DISTRIBUTION WIDTH 25.3 % (11.6-13.7); WHITE BLOOD COUNT (AUTO) 5.3 K/uL (4.8-10.8)
[2019-12-01 07:26] LABS: ANION GAP 9.3 (8-16); CARBON DIOXIDE 22.5 mmol/L (21-32); CREATININE 0.9 mg/dL (0.6-1.3); POTASSIUM 3.8 mmol/L (3.5-5.1)
[2019-12-01 07:30] LABS: MAGNESIUM 1.1 mg/dL (1.8-2.4); PHOSPHORUS 2.8 mg/dL (2.5-4.9)
[2019-12-01 08:00] VITALS: BP 104/67
[2019-12-01] MEDS: DOCUSATE SODIUM 100 MG GELCAP PO SCH (09:23)
[2019-12-01] MEDS: GABAPENTIN 300 MG CAP PO SCH ×2 (09:23→13:06)
--- NOTE | 2019-12-01 09:23 | NUR ---
MEDICATIONS GIVEN TO PATIENT, COMPLAINS OF 8/10 PAIN, CONSTANT, ACHING IN BILATERAL LOWER EXTREMITIES. AFTER EXPLANATION OF SIDE EFFECTS AND RISK OF ADDICTION, MORPHINE 4MG GIVEN. PATIENT REFUSES COLACE DESPITE EDUCATION THAT MORPHINE CAN CAUSE CONSTIPATION. PATIENT STATES THAT HE HAS NO PROBLEMS WITH BOWEL MOVEMENT AND HIS LAST BOWEL MOVEMENT WAS YESTERDAY. ALL NEEDS MET, CALL LIGHT WITHIN REACH, PATIENT LEFT RESTING COMFORTABLY IN BED. CONTACT PRECAUTIONS FOLLOWED. BILATERAL SIDE RAILS UP INSTRUCTED PATIENT TO CALL NURSE WHEN NEEDING TO USE RESTROOM
[2019-12-01] MEDS: MORPHINE SULFATE 4 MG/ML SYR IVP PRN ×3 (09:28→18:27)
[2019-12-01] MEDS: VANCOMYCIN 1,000 MG in DEXTROSE 5% 250 ML IV SCH (11:59)
[2019-12-01 12:00] VITALS: BP 117/74
--- NOTE | 2019-12-01 13:45 | NUR ---
12/01/19 RD INITIAL ASSESSMENT COMPLETED PLEASE REFER TO NUTRITION ASSESSMENT UNDER CARE ACTIVITY FOR ESTIMATED NUTRITIONAL NEEDS. 1. CONTINUE REGULAR DIET TOLERATED 2. RD TO FOLLOW-UP 3-5 DAYS, MODERATE RISK KENDRA GENTILE RD
[2019-12-01] MEDS ORDERED: Clindamycin IV (13:56)
[2019-12-01] MEDS ORDERED: QUET50TA PO (13:56)
[2019-12-01] MEDS ORDERED: Vancomycin IV (13:56)
[2019-12-01 16:01] VITALS: BP 122/72
[2019-12-01 16:19] VITALS: BP 122/72
--- NOTE | 2019-12-01 16:48 | NUR ---
REPORT GIVEN TO JILLIAN NURSE AT [facility], MADE AWARE REGARDING PATIENT CONDITION AND PLAN OF CARE OF IV ANTIBIOTICS. MADE AWARE OF PATIENT NEED FOR FOLLOW UP WITH ONCOLOGY MD DR. GODINEZ, VERBALIZED UNDERSTANDING.
--- NOTE | 2019-12-01 18:53 | NUR ---
REPORT GIVEN TO THE TRANSPORTERS WHO ARE HERE TO MANAGER INTERNAL THE PATIENT
--- NOTE | 2019-12-01 19:10 | NUR ---
PATIENT LEFT FACILITY WITH SHIRT AND PANTS AND SHOES, DISCHARGE PACKET GIVEN . REPORT GIVEN TO [employer] [employer] REGARDING PATIENT CONDITION. DISCHARGE PHOTOS TAKEN. ID BAND CUT AND REMOVED, PATIENT HAS RIJ HE WILL STILL GET IV ANTIBIOTICS. LEFT IN NO S/S RESPIRATORY DISTRESS, NO C/O OF PAIN.
== END 2019-12-01 19:11 | DRG 177 ==
LOC: MED 17:48 → MTU 20:10 → EEVIPCON 20:10 → MTU 11-28 04:26
PROVIDERS: ADMIT Family Medicine; ATTEND Family Medicine
PROC: 02HV33Z Insertion of Infusion Device into Superior Vena Cava, Percutaneous Approach (ICD-10-PCS; 2019-11-27)
PROC: B548ZZA Ultrasonography of Superior Vena Cava, Guidance (ICD-10-PCS; 2019-11-27)
PROC: 30233N1 Transfusion of Nonautologous Red Blood Cells into Peripheral Vein, Percutaneous Approach (ICD-10-PCS; principal; 2019-11-28)
DX: J69.0 Pneumonitis due to inhalation of food and vomit (principal); I21.A1 Myocardial infarction type 2; E43 Unspecified severe protein-calorie malnutrition; N17.0 Acute kidney failure with tubular necrosis; I50.43 Acute on chronic combined systolic (congestive) and diastolic (congestive) heart failure; N39.0 Urinary tract infection, site not specified; L03.116 Cellulitis of left lower limb; L03.115 Cellulitis of right lower limb; D68.9 Coagulation defect, unspecified; Z68.26 Body mass index [BMI] 26.0-26.9, adult; K72.90 Hepatic failure, unspecified without coma; K74.60 Unspecified cirrhosis of liver; N50.89 Other specified disorders of the male genital organs; Z20.828 Contact with and (suspected) exposure to other viral communicable diseases; E11.9 Type 2 diabetes mellitus without complications; E86.0 Dehydration; D69.6 Thrombocytopenia, unspecified; D64.9 Anemia, unspecified; I87.2 Venous insufficiency (chronic) (peripheral); F29 Unspecified psychosis not due to a substance or known physiological condition; R16.0 Hepatomegaly, not elsewhere classified; B18.2 Chronic viral hepatitis C; F17.290 Nicotine dependence, other tobacco product, uncomplicated; F19.10 Other psychoactive substance abuse, uncomplicated; Z88.0 Allergy status to penicillin; Z90.49 Acquired absence of other specified parts of digestive tract; Z59.0 Homelessness
CPT/HCPCS: 36415; 71045; 76700; 80048; 80053; 80202; 80305; 81001; 82105; 82140; 82150; 82550; 82553; 83605; 83690; 83735; 83880; 84100; 84484; 85025; 85610; 85730; 86886; 86900; 86901; 86920; 87040; 87081; 87086; 93005; 96361; 96365; 99291; J1642; J1956; J2060; J2270; J3370; J3490; J7030; J7060; P9016; Q0092; U0003-CS